=== PATIENT | female | born 1945 | race Caucasian/White ===

== ENCOUNTER 2016-02-24 06:00 | Day surgery (SDC) | payer MEDICARE, OTHER ==
[2016-02-24] MEDS ORDERED: LACTATED RINGERS 1,000 ML ONE (06:29)
[2016-02-24] MEDS ORDERED: PROPOFOL 200 MG/20 ML VIAL IV ONE (07:00)
--- NOTE | 2016-02-24 09:48 | OP ---
DATE OF PROCEDURE: 02/24/16 PREOPERATIVE DIAGNOSIS: 1. Epigastric pain. 2. Hematochezia. POSTOPERATIVE DIAGNOSIS: 1. Antral gastritis. 2. Internal and external hemorrhoids. 3. Diverticulosis. PROCEDURE: 1. Esophagogastroduodenoscopy plus biopsy. 2. Colonoscopy. SURGEON: Noe Escobar MD. COMPLICATIONS: None apparent. BLOOD LOSS: None. MEDICATIONS: Monitored anesthesia care. DESCRIPTION OF PROCEDURE: Informed consent was obtained prior to sedation. The preprocedure cardiopulmonary assessment was satisfactory. The patient was placed in the left lateral decubitus position and was sedated. The tip of the Olympus esophagogastroduodenoscope was inserted in the oropharynx and carefully advanced through the cricopharyngeus into the esophageal lumen. The esophagus was unremarkable without any evidence of esophagitis or Higuera's. The stomach was examined with direct and retroflexed views. The antrum, body, fundus, cardia and incisura were closely examined. The patient has evidence of some erythema of the gastric antrum and biopsies were obtained, looking for antral gastritis. The rest of the stomach was unremarkable without any evidence of ulceration or other pathology. The duodenum was examined down to the third portion and it was unremarkable as well. There was no evidence of any ulceration or other pathology in the duodenum. Biopsies of the antrum were obtained, looking for gastritis. The procedure was then terminated. The patient was turned 180 degrees. A digital rectal exam was performed. Examination of the perianal area and the anal region showed external hemorrhoids , some skin tags and some prolapsing internal tissue. I do not appreciate any fissures. Digital rectal exam revealed no masses seen and I do not appreciate any fissures on digital rectal exam. The tip of the Olympus colonoscope was inserted in the rectum and guided over to the cecum. The cecum was identified by locating the ileocecal valve and appendiceal orifice. Prep was good. The mucosa of the cecum, ascending colon, hepatic flexure, transverse colon, splenic flexure, descending colon and sigmoid colon was closely examined. Direct and retroflexed views of the rectum were obtained. The patient had some sigmoid diverticulosis and on retroflexed view in the rectum, there are some hemorrhoids, but the external portion of her disease seems most significant. The procedure was then terminated. ENDOSCOPIC FINDINGS: 1. Antral gastritis. 2. Diverticulosis. 3. Internal and external hemorrhoids skin tags. RECOMMENDATIONS: She had asked me to see if I could band her hemorrhoids, but it looks like the majority of her issue is external and I think she needs to visit with a general surgeon about that. I do not believe banding would help all her symptoms in this situation. We are going to followup with the biopsies and will be seeing her back in the office. #[id number] cc: Thor Harris MD MTDMisty
[2016-02-24 10:42] VITALS: BP 168/83; TEMP 98.4; O2SAT 98
== END 2016-02-24 10:30 | disposition home or self-care (01) ==
LOC: AMB 06:00
PROVIDERS: ATTEND Internal Medicine Gastroenterology
DX: K92.1 Melena (principal); R10.13 Epigastric pain; K57.30 Diverticulosis of large intestine without perforation or abscess without bleeding; K64.8 Other hemorrhoids; K64.4 Residual hemorrhoidal skin tags; K29.50 Unspecified chronic gastritis without bleeding; I10 Essential (primary) hypertension; E78.00 Pure hypercholesterolemia, unspecified; K59.00 Constipation, unspecified; K21.9 Gastro-esophageal reflux disease without esophagitis; Z79.899 Other long term (current) drug therapy
CPT/HCPCS: 00810; 43239; 45378; 88305; 88342; J3490; J7120

== ENCOUNTER 2016-04-23 08:49 | Emergency (ER) | payer MEDICARE, OTHER ==
[2016-04-23] MEDS ORDERED: ADENOSINE INJ 6 MG/2 ML SYG IV ONE ×6 (09:07→09:42)
[2016-04-23] MEDS ORDERED: SODIUM CHLORIDE 0.9% 10 ML VIAL ONE ×2 (09:09→09:19)
--- NOTE | 2016-04-23 09:34 | ED.PDOC ---
History of Present Illness - General Chief Complaint: Chest Pain/CO Stated Complaint: racing heart with chest pain Time Seen by Provider: 04/23/16 08:52 Source: patient, RN notes reviewed, Vital Signs reviewed, family Exam Limitations: no limitations - History of Present Illness Initial Comments: Patient reports that last night about 9pm she started feeling bad. Her heart started racing, vomited several times, developed chest pain and SOB. She was able to go to sleep but her symptoms were still present upon awaking this morning. She reports she has not been feeling well off and on for the past 2 weeks with dizziness, SOB, syncope, racing heart and chest pain. She has seen both her PCP and Nurse Educator with workup pending. Timing/Duration: 24 hours Severity: moderate Location: substernal Activities at Onset: rest Prior Chest Pain/Cardiac Workup: no prior chest pain Improving Factors: nothing Worsening Factors: nothing Nitro Today/Relief: no nitro taken today Aspirin Treatment Today: no aspirin today Associated Symptoms: chest pain - reports is sharp, tight with pressure, nausea/ vomiting, shortness of breath, syncope Allergies/Adverse Reactions: Allergies NO KNOWN ALLERGY Allergy (Verified 04/23/16 09:37) Home Medications: Ambulatory Orders Atenolol 50 mg PO AM 01/22/13 Folic Acid [(None)] 3 mg PO DAILY 01/22/13 Simvastatin 40 mg PO DAILY 01/22/13 Tizanidine HCl [Zanaflex] 2 mg PO BID PRN 07/16/15 Tofacitinib Citrate [Xeljanz Xr] 11 mg PO BID 02/23/16 Hydrochlorothiazide 12.5 mg PO DAILY 04/23/16 Losartan Potassium 100 mg PO DAILY 04/23/16 Prednisone 5 mg PO DAILY 04/23/16 Review of Systems - Review of Systems Constitutional: States: no symptoms reported. Denies: chills, diaphoresis, fever, malaise, weakness EENTM: States: no symptoms reported Respiratory: States: short of breath. Denies: cough, orthopnea, wheezing Cardiology: States: see HPI, chest pain, palpitations, syncope. Denies: edema Gastrointestinal/Abdominal: States: see HPI, nausea, vomiting. Denies: abdominal pain, constipation, diarrhea Genitourinary: States: no symptoms reported Musculoskeletal: States: no symptoms reported Skin: States: no symptoms reported Neurological: States: tremors, other - Dizziness Endocrine: States: no symptoms reported Hematologic/Lymphatic: States: no symptoms reported Past Medical History (General) - Patient Medical History Hx Congestive Heart Failure: No Hx Diabetes: No - Social History Hx Tobacco Use: No Hx Alcohol Use: No Hx Substance Use: No Hx Substance Use Treatment: No Hx Depression: No - Female History Patient : No Family Medical History - Family History Mother Name: mother Living Status: Cause of : lung cancer Father Name: father Living Status: Cause of : can not remember Sister Family History: No Known Name: sisters x 3 Living Status: Still Living Physical Exam - Physical Exam General Appearance: Agitated, Anxious, Obvious distress, Well Developed, Well Groomed, Well Hydrated, Well Nourished Neck: non-tender, full range of motion, supple, normal inspection Respiratory: lungs clear, normal breath sounds, no respiratory distress, no accessory muscle use, other - ant chest wall is tender to palpation Cardiovascular/Chest: tachycardia - 170 bpm Peripheral Pulses: radial,right: 2+, radial,left: 2+, dorsalis pedis,right: 2+, dorsalis pedis,left: 2+ Gastrointestinal/Abdominal: normal bowel sounds, non tender, soft, no organomegaly, no pulsatile mass Extremity: normal range of motion, non-tender, normal inspection, no pedal edema Neurologic: no motor/sensory deficits, alert, normal mood/affect, oriented x 3 Skin Exam: normal color, warm/dry Lymphatic: no adenopathy Progress - Progress Progress: 04/23/16 10:14 HR is maintaining around 77 and patient reports she is feeling better and is symptom free at this time. 04/23/16 10:[address] Adams. Recommended transfer to [facility]. Patient and family are agreeable with transfer. - Results/Orders Results/Orders: 04/23/16 08:55 IV Care:Saline Lock per Protoc QSHIFT Telemetry Q4H 04/23/16 09:00 EKG STAT 04/23/16 09:45 EKG STAT 04/23/16 10:01 Sodium Chloride 0.9% 1000ML [Ns 1000 ml] 1,000 ml IVS ONCE Laboratory Results - last 24 hr 04/23/16 09:13 WBC 7.7 RBC 3.91 L Hgb 13.3 Hct 39.7 MCV 101.7 H MCH 34.0 H MCHC 33.4 RDW 16.2 H Plt Count 318 MPV 7.3 L Absolute Neuts (auto) 4.30 Absolute Lymphs (auto) 2.20 Absolute Monos (auto) 1.00 H Absolute Eos (auto) 0.10 Absolute Basos (auto) 0.10 Neutrophils % 55.9 Lymphocytes % 29.1 Monocytes % 13.6 H Eosinophils % 0.7 L Basophils % 0.7 D-Dimer, Quantitative < 230 Sodium 137 Potassium 3.8 Chloride 98 L Carbon Dioxide 28 Anion Gap 14.8 BUN 30 H Creatinine 1.46 H BUN/Creatinine Ratio 20.5 H Random Glucose 95 Serum Osmolality 279.8 Calcium 10.2 Total Bilirubin 1.0 AST 39 ALT 36 Alkaline Phosphatase 53 Creatine Kinase 69 CK-MB (CK-2) 4.0 CK-MB (CK-2) % Not Reportable Troponin I 0.06 H B-Natriuretic Peptide 1270.0 H* Serum Total Protein 7.4 Albumin 4.3 Globulin 3.1 Albumin/Globulin Ratio 1.4 - EKG/XRAY/CT EKG: Tachy Comments: SVT, 168 bpm, ST depression V4,V5,V6 XRAY: chest - No acute process per Radiology - Additional EKG/XRAY/Consults EKG #2: Sinus Comments: 81bpm, PVC'sx, ST abnormality has resolved Departure - Departure Clinical Impression: Congestive heart failure, SVT (supraventricular tachycardia) Time of Disposition: 10:23 Disposition: Transfer to Hospital Condition: Fair Referrals: Thor Harris MD [Primary Care Provider] - 1-2 Weeks Home Medications: Ambulatory Orders Atenolol 50 mg PO AM 01/22/13 Folic Acid [(None)] 3 mg PO DAILY 01/22/13 Simvastatin 40 mg PO DAILY 01/22/13 Tizanidine HCl [Zanaflex] 2 mg PO BID PRN 07/16/15 Tofacitinib Citrate [Xeljanz Xr] 11 mg PO BID 02/23/16 Hydrochlorothiazide 12.5 mg PO DAILY 04/23/16 Losartan Potassium 100 mg PO DAILY 04/23/16 Prednisone 5 mg PO DAILY 04/23/16 Critical Care Note - Critical Care Note Total Time (mins): 35 - At bedside for SVT tx with Adenosine Comments: Patient with SVT. Adenosine 6mg IVP given but IV infiltrated. Second IV obtained and second Adenosine 6mg IVP given. Brief initial response but HR rapidly returned to the 160's. Adenosine 12mg IVP given. Good response with HR stabilizing in the upper 80's and BP of 160/94. Decision To Admit - Decistion To Admit Decision to Admit Reason: Admit from ER - Spoke with Dr. Adams. Will admit for SVT, elevated troponin and acute CHF with BNP of 1270 Transfer to Outside Facility - Transfer Information Accepting Provider:: Dr. Corbett Accepting Facility: [facility] Reason for Transfer: specialized care not available - Need more thurough cardiac eval than is available here
[2016-04-23] MEDS ORDERED: SODIUM CHLORIDE 0.9% 1000ML 1,000 ML IVS ONE (10:01)
--- NOTE | 2016-04-23 10:09 | RAD ---
PROCEDURE: XR CHEST 1 VIEW HISTORY: chest pain COMPARISON: 07/16/2015 TECHNIQUE: Single projection of the chest was done. FINDINGS: Note is again made of multiple old healed right-sided rib fractures . There are no discrete airspace infiltrates, pneumothoraces or pleural effusions. The pulmonary vascularity is normal. The cardiomediastinal contour is stable . IMPRESSION: There is no acute pleural-parenchymal process seen in the imaged lung pyle. Location of Interpretation: Teleradiology Electronically signed by: Farhad Nava MD 04/23/2016 10:08 AM CDT
[2016-04-23] MEDS ORDERED: METOPROLOL TARTRATE 50 MG TAB PO ONE (10:34)
[2016-04-23 11:23] VITALS: BP 164/104; TEMP 97.2; O2SAT 98
== END 2016-04-23 11:42 | disposition short-term general hospital (02) ==
LOC: ER 08:49
DX: I47.1 Supraventricular tachycardia (principal); I50.9 Heart failure, unspecified; Z79.899 Other long term (current) drug therapy
CPT/HCPCS: 36415; 71010; 80053; 82550; 82553; 83880; 84484; 85025; 85379; 93005; J0153; J7030

== ENCOUNTER → 2016-05-30 | Outpatient (CLI) | payer MEDICARE, OTHER | END | disposition home or self-care (01) | LOC: GMAB 14:43 | PROVIDERS: ATTEND Family Medicine | DX: N30.00 Acute cystitis without hematuria (principal) ==

== ENCOUNTER → 2016-06-02 | Outpatient (CLI) | payer MEDICARE, OTHER ==
--- NOTE | 2016-06-02 16:46 | CT ---
EXAM DESCRIPTION: Abdomen/Pelvis w/wo Contrast CLINICAL HISTORY: NAUSEA AND VOMITING COMPARISON: 16 May 2013 TECHNIQUE: Transaxial images were obtained pre and post menstruation of intravenous contrast medium without oral contrast media. Sagittal and coronal reconstruction was performed. This exam was performed according to our departmental dose-optimization program, which includes automated exposure control, adjustment of the mA and/or kV according to patient size and/or use of iterative reconstruction technique. FINDINGS: The lung bases are clear. The liver and spleen are unremarkable. Mild dilatation of the common bile duct is observed. The patient is postcholecystectomy. The pancreas appears somewhat atrophic. No adrenal masses are detected. Imaging of the kidneys reveals no evidence of hydronephrosis mass cyst or calcification. The right kidney appears somewhat atrophic. Examination also reveals what appears to be a diverticulum of the duodenum with some debris within it. A cluster of embolization coils are observed in the upper abdomen. Adjacent to the region of coiling is a cystic-appearing mass measuring 9.62 x 8.5 cm. This is adjacent to the duodenum. It has the appearance of the hematoma. Calcific atherosclerotic changes observed in the abdominal aorta without evidence of aneurysmal dilatation. Diverticulosis of the colon is observed without evidence of diverticulitis. No free fluid is observed. The patient is post hysterectomy. IMPRESSION: 1. The patient is postcholecystectomy. There is mild dilatation of the biliary ductal system which is a common finding post cholecystectomy. 2. A large cystic-appearing region is observed adjacent to the duodenal C-loop in area which also has embolization coils next to it. This appears to be a focus of hemorrhage associated with the the duodenal C-loop. It is a contained hemorrhage. 3. Uncomplicated diverticulosis of the colon. 4. Hysterectomy 5. Results were called to Dr. Harris. Electronically signed by: Gian Davis MD 06/02/2016 4:46 PM CDT
== END ==
LOC: CT 14:01
PROVIDERS: ATTEND Family Medicine
DX: R11.2 Nausea with vomiting, unspecified (principal); Z98.890 Other specified postprocedural states; K57.30 Diverticulosis of large intestine without perforation or abscess without bleeding; Z90.710 Acquired absence of both cervix and uterus

== ENCOUNTER 2016-07-04 16:32 | Emergency (ER) | payer MEDICARE, OTHER ==
--- NOTE | 2016-07-04 17:01 | ED.PDOC ---
History of Present Illness - General Chief Complaint: Skin/Abrasion/Tear Stated Complaint: elbow skin tear, bleeding Time Seen by Provider: 07/04/16 16:50 Source: patient Exam Limitations: no limitations - History of Present Illness Initial Comments: Keri Begum 71 y/o female stated while walking out of her friends house tripped on her slippers and fell on her left elbow and knee;she denies head or neck injury or pain on her head or neck and came to er to be checked since she is taking plavix for her cardiac stent that was placed recently.Has history of a fib and,htn and cad Occurred: just prior to arrival Pain - Upper Extremity: moderate: Elbow, left Method of Injury: fell Improving Factors: nothing Worsening Factors: nothing Associated Symptoms: none Allergies/Adverse Reactions: Allergies NO KNOWN ALLERGY Allergy (Verified 07/04/16 17:05) Home Medications: Ambulatory Orders Atenolol 50 mg PO AM 01/22/13 Folic Acid [(None)] 3 mg PO DAILY 01/22/13 Simvastatin 40 mg PO DAILY 01/22/13 Tizanidine HCl [Zanaflex] 2 mg PO BID PRN 07/16/15 Tofacitinib Citrate [Xeljanz Xr] 11 mg PO BID 02/23/16 Hydrochlorothiazide 12.5 mg PO DAILY 04/23/16 Losartan Potassium 100 mg PO DAILY 04/23/16 Prednisone 5 mg PO DAILY 04/23/16 Review of Systems - Review of Systems Constitutional: States: no symptoms reported EENTM: States: no symptoms reported Respiratory: States: no symptoms reported Cardiology: States: no symptoms reported Gastrointestinal/Abdominal: States: no symptoms reported Genitourinary: States: no symptoms reported Musculoskeletal: States: see HPI Skin: States: no symptoms reported Neurological: States: no symptoms reported Endocrine: States: no symptoms reported Hematologic/Lymphatic: States: no symptoms reported Past Medical History (General) - Patient Medical History Hx Cardiac Disorders: No Hx Congestive Heart Failure: No Hx Hypertension: Yes Hx Diabetes: No Hx Other PMH: Yes - cad,afib Surgical History: cholecystectomy, other - hysterectomy,carpal tunnel Other Surgeries:: cardiac cath,coiling of pancreatic artery aneurysm - Vaccination History Hx Tetanus, Diphtheria Vaccination: Yes Hx Influenza Vaccination: Yes Hx Pneumococcal Vaccination: No - Social History Hx Tobacco Use: No Hx Alcohol Use: No Hx Substance Use: No Hx Substance Use Treatment: No Hx Depression: No - Activities of Daily Living Patient Lives Alone: No - family Grooming Ability: Independent Eating (Feeding) Ability: Independent Toileting Ability: Independent - Female History Patient : No Family Medical History - Family History Mother Name: mother Living Status: Cause of : lung cancer Hx Family Hypertension: Yes - parents Father Name: father Living Status: Cause of : can not remember Sister Family History: No Known Name: sisters x 3 Living Status: Still Living Physical Exam - Physical Exam General Appearance: Alert, No apparent distress, Other - NCAT Eyes, Ears, Nose, Throat Exam: PERRL/EOMI, normal ENT inspection, TMs normal Neck: non-tender, full range of motion, supple, normal inspection Cardiovascular/Respiratory: no M/R/G, normal peripheral pulses, normal breath sounds, irregularly irregular Abdominal Exam: non-tender, no organomegaly Back Exam: normal inspection, no CVA tenderness, no vertebral tenderness Shoulder Exam: normal inspection, no evidence of injury Elbow/Forearm Exam: pain - left elbow,skin abrasion,no active bleeding noted, soft tissue tenderness Wrist Exam: normal inspection, no evidence of injury Hand Exam: normal inspection, no evidence of injury Neuro/Tendon: normal sensation, normal motor functions, normal tendon functions , responds to pain, no evidence tendon injury Mental Status: alert, oriented x 3 Skin Exam: normal color, warm/dry Progress - Results/Orders Results/Orders: Vital Signs - 8 hr 07/04/16 07/04/16 16:37 17:40 Temperature 98.0 F Pulse Rate [ 64 64 pulse ox] Respiratory 20 20 Rate Blood Pressure 183/97 148/76 [Right Arm] O2 Sat by Pulse 95 96 Oximetry - EKG/XRAY/CT XRAY: elbow - no fracture /radiologist Departure - Departure Clinical Impression: Skin abrasion Fall Qualifiers: Encounter type: initial encounter Qualified Code(s): W19.XXXA - Unspecified fall, initial encounter Left elbow contusion Qualifiers: Encounter type: initial encounter Qualified Code(s): S50.02XA - Contusion of left elbow, initial encounter Time of Disposition: 17:51 Disposition: Discharge to Home or Self Care Condition: Good Departure Forms: ED Discharge - Pt. Copy, Patient Portal Self Enrollment Instructions: DI for Contusion Referrals: Thor Harris MD [Primary Care Provider] - 1-2 Weeks Home Medications: Ambulatory Orders Atenolol 50 mg PO AM 01/22/13 Folic Acid [(None)] 3 mg PO DAILY 01/22/13 Simvastatin 40 mg PO DAILY 01/22/13 Tizanidine HCl [Zanaflex] 2 mg PO BID PRN 07/16/15 Tofacitinib Citrate [Xeljanz Xr] 11 mg PO BID 02/23/16 Hydrochlorothiazide 12.5 mg PO DAILY 04/23/16 Losartan Potassium 100 mg PO DAILY 04/23/16 Prednisone 5 mg PO DAILY 04/23/16 Additional Instructions: Tylenol (otc) 500 mg by mouth 3 x a day for pain as needed ;Ice pack to affected area 3 x a day during waking hours only for pain /swelling as needed
[2016-07-04 17:05] VITALS: TEMP 98
--- NOTE | 2016-07-04 17:31 | RAD ---
EXAM DESCRIPTION: Elbow,Left 3 Views CLINICAL HISTORY: 71 years Female fall COMPARISON: None. TECHNIQUE: Three view FINDINGS: No elbow effusion. There is narrowing of the joint spaces with osteophytosis along the proximal radius and ulna. IMPRESSION: No acute fracture is identified. Degenerative changes Electronically signed by: Katelin Ni 07/04/2016 5:31 PM CDT
[2016-07-04 17:42] VITALS: BP 148/76; O2SAT 96
== END 2016-07-04 18:08 | disposition home or self-care (01) ==
LOC: ER 16:32
DX: S50.312A Abrasion of left elbow, initial encounter (principal); S50.02XA Contusion of left elbow, initial encounter; I10 Essential (primary) hypertension; I48.91 Unspecified atrial fibrillation; I25.10 Atherosclerotic heart disease of native coronary artery without angina pectoris; Z79.02 Long term (current) use of antithrombotics/antiplatelets; Z98.61 Coronary angioplasty status; Z79.899 Other long term (current) drug therapy; W01.0XXA Fall on same level from slipping, tripping and stumbling without subsequent striking against object, initial encounter; Y92.009 Unspecified place in unspecified non-institutional (private) residence as the place of occurrence of the external cause

== ENCOUNTER → 2016-07-12 | Outpatient (CLI) | payer MEDICARE, OTHER | LOC: GMAB 06-02 14:35 | PROVIDERS: ATTEND Family Medicine | DX: R19.7 Diarrhea, unspecified (principal) ==

== ENCOUNTER → 2016-07-13 | Outpatient (CLI) | payer MEDICARE, OTHER | END | disposition home or self-care (01) | LOC: GMAB 14:24 | PROVIDERS: ATTEND Family Medicine | DX: R53.82 Chronic fatigue, unspecified (principal) ==

== ENCOUNTER 2016-11-07 16:42 | Emergency (ER) | payer MEDICARE, OTHER ==
[2016-11-07] MEDS ORDERED: ACETAMINOPHEN 500 MG TAB PO ONE (17:02)
[2016-11-07] MEDS ORDERED: ONDANSETRON ODT 8 MG TAB ONE (17:08)
[2016-11-07] MEDS ORDERED: ONDANSETRON ODT 8 MG TAB SL ONE (17:12)
--- NOTE | 2016-11-07 17:52 | RAD ---
EXAM: Chest,1 View CLINICAL INDICATION: 71-year-old female with cough and fever. TECHNIQUE: Single view, AP portable chest was obtained. COMPARISON: 04/23/2016. FINDINGS: Permanent stable cardiac and mediastinal silhouette. Heart size is normal. Tortuous atherosclerotic thoracic aorta. RIGHT middle lobe airspace opacification greater than LEFT suggesting consolidation and/or atelectasis. No large pleural effusions or gross pneumothoraces. Irregularity of the RIGHT side chest RIBS compatible with sequela of prior healed fractures. The visualized bones reveal degenerative change. Upper abdominal surgical coils noted. IMPRESSION: Airspace opacification of the RIGHT greater than LEFT lower lobes raising the concern for consolidation/pneumonia. Please correlate with patient clinical findings and follow-up for resolution. Electronically signed by: Frances Hooker MD 11/07/2016 5:51 PM CDT Workstation: [id number]
[2016-11-07] MEDS ORDERED: AZITHROMYCIN IV 500 MG in SODIUM CHLORIDE 0.9% 250ML 250 ML IVPB ONE (17:58)
[2016-11-07] MEDS ORDERED: cefTRIAXone SODIUM 1 GM in SODIUM CHL 0.9% 50ML MIN-BAG+ 50 ML IVPB ONE (17:58)
[2016-11-07] MEDS ORDERED: FLUCONAZOLE 100 MG TAB PO ONE (18:00)
[2016-11-07] MEDS ORDERED: SODIUM CHLORIDE 0.9% 1000ML 1,000 ML IVS ONE (18:14)
[2016-11-07] MEDS ORDERED: MAGNESIUM SULFATE PREMIX 2GM 2 GM in PREMIX BAG 1 BAG IVPB ONE (18:29)
[2016-11-07] MEDS ORDERED: cefTRIAXone SODIUM 1 GM VIAL ONE (18:32)
[2016-11-07] MEDS ORDERED: SODIUM CHL 0.9% 50ML MIN-BAG+ 50 ML IVPB ONE (18:33)
[2016-11-07 19:08] VITALS: O2SAT 95
--- NOTE | 2016-11-07 19:10 | ED.PDOC ---
History of Present Illness - General Chief Complaint: General Stated Complaint: shivering/shaking Time Seen by Provider: 11/07/16 16:52 Source: patient Exam Limitations: clinical condition - History of Present Illness Initial Comments: The patient is a 71-year-old female presenting to the emergency room secondary to generalized weakness, increased tremor, fever, and increased cough. The patient also had some mild delirium. She is showing some confusion and seeing some mild visual hallucinations like feathers floating in the air. The delirium has only been going on an hour so. She is febrile here. She is alert and cooperative. She is able to give her medications and her medical history. She reports about a day and a half of cough. Her oxygen levels are borderline at 88-92% on room air. She does have some right lower lung field rales. She does have a cough. She did cough until she vomited a while ago. she does take several immunosuppressive medications. Her last white blood cell count checked here approximately 6 months ago was 7000. Her last creatinine checked here around that same time was 1.2. additionally, the patient did take her first dose of Sinemet today. She would've come in sooner but she felt that this was likely a reaction to that medication. Timing/Duration: 24 hours Severity: moderate Improving Factors: nothing Worsening Factors: nothing Associated Symptoms: cough, fever/chills, malaise, weakness Allergies/Adverse Reactions: Allergies NO KNOWN ALLERGY Allergy (Verified 07/04/16 17:05) Home Medications: Ambulatory Orders Atenolol 50 mg PO AM 01/22/13 Folic Acid [(None)] 3 mg PO DAILY 01/22/13 Simvastatin 40 mg PO DAILY 01/22/13 Tizanidine HCl [Zanaflex] 2 mg PO BID PRN 07/16/15 Tofacitinib Citrate [Xeljanz Xr] 11 mg PO BID 02/23/16 Hydrochlorothiazide 12.5 mg PO DAILY 04/23/16 Losartan Potassium 100 mg PO DAILY 04/23/16 Prednisone 5 mg PO DAILY 04/23/16 Review of Systems - Review of Systems Constitutional: States: chills, diaphoresis, fever, malaise, weakness EENTM: States: no symptoms reported Respiratory: States: cough, short of breath - mild Cardiology: States: no symptoms reported Gastrointestinal/Abdominal: States: vomiting - after coughing Genitourinary: States: no symptoms reported Musculoskeletal: States: no symptoms reported - no new symptoms Skin: States: no symptoms reported Neurological: States: other - increased tremor over the last day. Endocrine: States: excessive sweating, increased thirst All other Systems: No Change from Baseline Past Medical History (General) - Patient Medical History Hx Cardiac Disorders: Yes - Cardiac x 1, afib Hx Congestive Heart Failure: No Hx Hypertension: Yes Hx Diabetes: No Hx Gastroesophageal Reflux: Yes - Vaccination History Hx Tetanus, Diphtheria Vaccination: Yes Hx Influenza Vaccination: Yes Hx Pneumococcal Vaccination: No - Social History Hx Tobacco Use: No Hx Alcohol Use: No Hx Substance Use: No Hx Substance Use Treatment: No Hx Depression: No - Female History Patient : No - Triage Comment ED Triage Comment: Pt states she starte a new medication today and thinks that is what causing her trimmers. States she did vomit at the [employer]. Family Medical History - Family History Mother Name: mother Living Status: Cause of : lung cancer Hx Family Hypertension: Yes - parents Father Name: father Living Status: Cause of : can not remember Sister Family History: No Known Name: sisters x 3 Living Status: Still Living Physical Exam - Physical Exam General Appearance: Alert, Anxious, Other - flushed and mildly diaphoretic. She is easily confused but does answermost questions appropriately. Eye Exam: bilateral normal Ears, Nose, Throat: hearing grossly normal, normal ENT inspection, normal pharynx Neck: full range of motion, supple, normal inspection Respiratory: no respiratory distress, no accessory muscle use, rales - right lower lobe Cardiovascular/Chest: normal peripheral pulses, no edema, tachycardia - appears to be sinus Peripheral Pulses: radial,right: 2+, radial,left: 2+, dorsalis pedis,right: 2+, dorsalis pedis,left: 2+ Gastrointestinal/Abdominal: non tender, soft Rectal Exam: deferred Back Exam: normal inspection, no CVA tenderness, no vertebral tenderness Extremity: normal range of motion, non-tender, normal inspection, no pedal edema , normal capillary refill, other - hronic changes from her rheumatoid arthritis Neurologic: hedis abstractor II-XII nml as tested, alert, oriented x 3, other - mental status has cleared significantly with improvement in the fever. No headache. No focal neurological changes. Skin Exam: other - flushed Comments: Vital Signs - 24 hr 11/07/16 11/07/16 11/07/16 16:57 17:03 17:18 Temperature 101.9 F H Pulse Rate [ 104 H 97 H monitor] Respiratory 24 24 24 Rate Blood Pressure 139/73 91/52 [Left Arm] O2 Sat by Pulse 97 96 Oximetry 11/07/16 11/07/16 18:00 18:50 Temperature 101.9 F H Pulse Rate [ 95 H 81 monitor] Respiratory 18 24 Rate Blood Pressure 126/61 99/51 [Left Arm] O2 Sat by Pulse 84 L 95 Oximetry Progress - Progress Progress: 11/07/16 19:14 the patient is a 71-year-old female presenting with what appears to be sepsis likely from her right lower lobe pneumonia in an immunocompromised date. The patient is receiving Rocephin and azithromycin. She is receiving a liter of IV fluids. even though she is in an immunocompromised state I am going to go ahead and dose her with a dose of Solu-Medrol, as adrenal insufficiency given her history may rapidly develop. Final results on urinalysis and influenza swab are pending. She does have some hypomagnesemia and has received a dose of magnesium. Delirium has significantly improved with above measures. She looks much more comfortable. She does still require low-flow oxygen to keep her oxygen saturations greater than 92%. She does have some acute renal failure. The IV fluids should help with that as well. She does have some macrocytosis and takes methotrexate so a folic acid level and b12 level may also be warranted along with the peripheral blood smear. These are send out labs here so have not been done. her fever is starting to spike again so she will be dosed with a dose of ibuprofen. transferred for higher level of care. Critical care time spent in management of this patient as well as coordination of care and receiving facility 40 minutes - Results/Orders Results/Orders: Laboratory Tests 11/07/16 11/07/16 11/07/16 17:36 17:36 18:22 WBC 1.6 L* RBC 3.76 L Hgb 12.7 Hct 38.4 MCV 101.9 H MCH 33.7 H MCHC 33.0 RDW 16.6 H Plt Count 325 MPV 6.9 L Absolute Neuts (auto) Not Reportable Absolute Lymphs (auto) Not Reportable Absolute Monos (auto) Not Reportable Absolute Eos (auto) Not Reportable Neutrophils % Not Reportable Neutrophils % (Manual) 70.0 Lymphocytes % Not Reportable Lymphocytes % (Manual) 18.0 Monocytes % Not Reportable Monocytes % (Manual) 2.0 Eosinophils % Not Reportable Basophils % Not Reportable Band Neutrophils 10.0 Platelet Estimate Normal Normal RBC Morphology Normal rbc morph Sodium 135 Potassium 4.3 Chloride 98 L Carbon Dioxide 24 Anion Gap 17.3 BUN 43 H Creatinine 1.94 H BUN/Creatinine Ratio 22.2 H Random Glucose 96 Serum Osmolality 280.8 Lactic Acid 3.7 H* Calcium 9.7 Magnesium 1.3 L Total Bilirubin 0.7 AST 61 H ALT 34 Alkaline Phosphatase 52 Creatine Kinase 74 CK-MB (CK-2) 1.7 CK-MB (CK-2) % Not Reportable Troponin I < 0.02 Serum Total Protein 7.3 Albumin 4.4 Globulin 2.9 Albumin/Globulin Ratio 1.5 Amylase 61 Lipase 24 chest x-ray shows a right lower lobe infiltrate. Urinalysis is pending. Flu swab is pending. Departure - Departure Clinical Impression: Immunocompromised, acquired Sepsis Qualifiers: Sepsis type: sepsis due to unspecified organism Qualified Code(s): A41.9 - Sepsis, unspecified organism Pneumonia Qualifiers: Pneumonia type: due to unspecified organism Laterality: right Lung location: lower lobe of lung Qualified Code(s): J18.1 - Lobar pneumonia, unspecified organism Disposition: Transfer to Hospital Referrals: Thor Harris MD [Primary Care Provider] - 1-2 Weeks Home Medications: Ambulatory Orders Atenolol 50 mg PO AM 01/22/13 Folic Acid [(None)] 3 mg PO DAILY 01/22/13 Simvastatin 40 mg PO DAILY 01/22/13 Tizanidine HCl [Zanaflex] 2 mg PO BID PRN 07/16/15 Tofacitinib Citrate [Xeljanz Xr] 11 mg PO BID 02/23/16 Hydrochlorothiazide 12.5 mg PO DAILY 04/23/16 Losartan Potassium 100 mg PO DAILY 04/23/16 Prednisone 5 mg PO DAILY 04/23/16 Transfer to Outside Facility - Transfer Information Accepting Provider:: dr olmstead Accepting Facility: [facility] Reason for Transfer: ICU
[2016-11-07] MEDS ORDERED: MAGNESIUM SULFATE PREMIX 2GM 50 ML IVPB ONE (19:11)
[2016-11-07] MEDS ORDERED: IBUPROFEN 200 MG TAB PO ONE (19:13)
[2016-11-07] MEDS ORDERED: FOLIC ACID 1 MG TAB ONE (19:17)
[2016-11-07] MEDS ORDERED: methylPREDNISolone SODIUM SUC 125 MG/2 ML VIAL IV ONE (19:20)
[2016-11-07] MEDS ORDERED: AZITHROMYCIN IV 500 MG VIAL IVPB ONE (19:27)
[2016-11-07] MEDS ORDERED: SODIUM CHLORIDE 0.9% 250ML 250 ML ONE (19:27)
[2016-11-07 20:28] VITALS: BP 81/43; TEMP 99
[2016-11-08] MEDS ORDERED: FOLIC ACID 1 MG TAB PO ONE ×3 (18:07→19:26)
== END 2016-11-07 20:20 | disposition short-term general hospital (02) ==
LOC: ER 16:42
DX: A41.9 Sepsis, unspecified organism (principal); J18.1 Lobar pneumonia, unspecified organism; D89.9 Disorder involving the immune mechanism, unspecified; I48.91 Unspecified atrial fibrillation; I10 Essential (primary) hypertension; K21.9 Gastro-esophageal reflux disease without esophagitis; Z79.899 Other long term (current) drug therapy
CPT/HCPCS: 36415; 71010; 80053; 82150; 82550; 82553; 83605; 83690; 83735; 84484; 85025; 87040; 87502; J0456; J0696; J2930; J3475; J7030; J7050

== ENCOUNTER → 2017-02-02 | Outpatient (CLI) | payer MEDICARE, OTHER | END | disposition home or self-care (01) | LOC: GMAB 10:51 | PROVIDERS: ATTEND Family Medicine | DX: E53.8 Deficiency of other specified B group vitamins (principal); I10 Essential (primary) hypertension; D50.8 Other iron deficiency anemias ==

== ENCOUNTER → 2017-02-09 | Outpatient (CLI) | payer MEDICARE, OTHER ==
--- NOTE | 2017-02-09 16:33 | MRI ---
EXAM DESCRIPTION: Brain w/oContrast: MRI. CLINICAL HISTORY: ALTERED MENTAL STATUS COMPARISON: MRI scan of the brain 08/24/2009. TECHNIQUE: Multiplanar, high-field MRI unit, multiple diffusion sequences, multiple conventional sequences without contrast. FINDINGS: Multiple foci of bright FLAIR and T2-weighted signal in the periventricular white matter and rolon-white matter junctions of the cerebral hemispheres. Relatively symmetric bilaterally with slightly more in the left frontal lobe compared to other regions. Normal signal in the bilateral basal ganglia. No hemorrhage, no cerebral edema, no mass-effect. Normal signal in the brainstem and cerebellar hemispheres. No hemorrhage, no cerebral edema, no mass-effect. Concordance of the diffusion and non-diffusion sequences with no diffusion restriction. Cortical sulci, ventricles, and other CSF spaces, and the subdural spaces are normally configured for patients age. No effacement or displacement. No midline shift. No extra-axial hemorrhage. Normal flow signal void in the major vessels of the [place], and the venous sinuses. IACs are symmetric bilaterally. Multiple basilar cells containing fluid or edema in the inferior right mastoid air cells. Normal signal in the left mastoid air cells. No mass effect in the bilateral cerebellopontine angles. Pituitary gland occupies most of the sella. Base of the cerebellar tonsils is above the foramen magnum. Minimal chronic disease in the paranasal sinuses. [place] bull[place] in the right middle turbinate The bony calvarium is intact. IMPRESSION: 1. Multiple foci of white matter lesions in the bilateral cerebral hemispheres are most likely related to cerebral microvascular disease. Number of lesions has progressed since the prior study in 2009. No hemorrhage, mass effect, or cerebral edema. 2. MRI diffusion study showing no evidence of acute or subacute infarction or significant ischemia. Stable since the prior study. 3. [place] bull[place] in the right middle turbinate stable since the prior study. Inflammatory changes in the right mastoid air cells of the base stable since the prior study. Electronically signed by: Danilo Randle MD 02/09/2017 4:32 PM [facility]
== END | disposition home or self-care (01) ==
LOC: MRI 13:43
PROVIDERS: ATTEND Family Medicine
DX: I67.89 Other cerebrovascular disease (principal); R41.82 Altered mental status, unspecified

== ENCOUNTER → 2017-08-23 | Outpatient (CLI) | payer MEDICARE, OTHER | LOC: LAB.O 09:35 | PROVIDERS: ATTEND Internal Medicine Rheumatology | DX: Z79.899 Other long term (current) drug therapy (principal) ==

== ENCOUNTER → 2017-10-24 | Outpatient (CLI) | payer MEDICARE, OTHER | LOC: LAB.O 09:38 | PROVIDERS: ATTEND Internal Medicine Rheumatology | DX: Z79.899 Other long term (current) drug therapy (principal) ==

== ENCOUNTER 2017-11-13 05:25 | Day surgery (SDC) | payer MEDICARE, OTHER ==
[2017-11-13] MEDS ORDERED: PROPARACAINE 0.5% OPHTH SOL 15 ML BTTL ONE (06:01)
[2017-11-13] MEDS ORDERED: TROP 1%/CYCLOPEN 1%/PHENYL 2% DROPS ONE (06:01)
[2017-11-13] MEDS ORDERED: MIDAZOLAM INJ 2 MG/2 ML VIAL ONE (06:37)
[2017-11-13] MEDS: PROPARACAINE 0.5% OPHTH SOL 15 ML BTTL RIGHT_EYE ONE (08:10)
[2017-11-13] MEDS: TOBRAMYCIN SULF 0.3 % OPHT SOL 1 DROP RIGHT_EYE ONE ×2 (08:17→08:45)
[2017-11-13] MEDS: LIDOCAINE 1% 2 ML VIAL INJ ONE ×2 (08:17→08:30)
[2017-11-13] MEDS: DEXAMETHASONE 0.1% OPHTH SOL 1 DROP RIGHT_EYE ONE ×2 (08:17→08:45)
[2017-11-13] MEDS: BRIMONIDINE 0.2% OPHTH DROPS RIGHT_EYE ONE ×2 (08:18→08:45)
== END 2017-11-13 09:20 | disposition home or self-care (01) ==
LOC: AMB 05:25
PROVIDERS: ATTEND Ophthalmology
DX: H25.11 Age-related nuclear cataract, right eye (principal); I10 Essential (primary) hypertension; M06.9 Rheumatoid arthritis, unspecified; K21.9 Gastro-esophageal reflux disease without esophagitis; N28.9 Disorder of kidney and ureter, unspecified; Z79.82 Long term (current) use of aspirin; Z79.899 Other long term (current) drug therapy
CPT/HCPCS: 00142; 66984; J2250

== ENCOUNTER 2017-11-27 05:31 | Day surgery (SDC) | payer MEDICARE, OTHER ==
[2017-11-27] MEDS ORDERED: PROPARACAINE 0.5% OPHTH SOL 15 ML BTTL ONE (06:00)
[2017-11-27] MEDS ORDERED: TROP 1%/CYCLOPEN 1%/PHENYL 2% DROPS ONE (06:00)
[2017-11-27] MEDS ORDERED: MIDAZOLAM INJ 2 MG/2 ML VIAL ONE (07:05)
[2017-11-27] MEDS ORDERED: LIDOCAINE 1% MPF 5 ML VIAL INJ ONE (08:45)
[2017-11-27] MEDS ORDERED: DEXAMETHASONE 0.1% OPHTH SOL 1 DROP LEFT_EYE ONE ×2 (08:46→08:59)
[2017-11-27] MEDS ORDERED: BRIMONIDINE 0.2% OPHTH DROPS LEFT_EYE ONE ×2 (08:46→08:59)
[2017-11-27] MEDS ORDERED: TOBRAMYCIN SULF 0.3 % OPHT SOL 1 DROP LEFT_EYE ONE ×2 (08:46→08:59)
== END 2017-11-28 09:35 | disposition home or self-care (01) ==
LOC: AMB 05:31
PROVIDERS: ATTEND Ophthalmology
DX: H25.12 Age-related nuclear cataract, left eye (principal); I10 Essential (primary) hypertension; I25.10 Atherosclerotic heart disease of native coronary artery without angina pectoris; I25.2 Old myocardial infarction; R73.03 Prediabetes; F17.290 Nicotine dependence, other tobacco product, uncomplicated; Z79.82 Long term (current) use of aspirin; Z79.899 Other long term (current) drug therapy
CPT/HCPCS: 00142; 66984; J2250

== ENCOUNTER → 2017-12-25 | Outpatient (CLI) | payer MEDICARE, OTHER | LOC: LAB.O 10:28 | PROVIDERS: ATTEND Internal Medicine Rheumatology | DX: Z79.899 Other long term (current) drug therapy (principal) ==

== ENCOUNTER → 2018-01-01 | Outpatient (CLI) | payer MEDICARE, OTHER ==
--- NOTE | 2018-01-01 10:31 | RAD ---
4 view left shoulder Indication: PAIN IN LEFT SHOULDER Comparison: None. Impression: A.C. and glenohumeral joint alignment normal without acute fracture or dislocation. Moderate glenohumeral joint osteoarthritis noted with subchondral sclerosis, joint space narrowing, and mild cortical remodeling of the central to inferior aspects of the glenohumeral joint. Small inferior osteophytes noted as well. Electronically signed by: Bora Javier MD 01/01/2018 10:29 AM [facility]
== END ==
LOC: RAD 09:17
PROVIDERS: ATTEND Orthopaedic Surgery
DX: M19.012 Primary osteoarthritis, left shoulder (principal); M25.512 Pain in left shoulder

== ENCOUNTER → 2018-01-03 | Outpatient (CLI) | payer MEDICARE, OTHER ==
--- NOTE | 2018-01-03 11:10 | MRI ---
MRI left shoulder without contrast INDICATION: Rotator cuff tear shoulder pain arthritis TECHNIQUE: Noncontrast MR imaging left shoulder standard protocol FINDINGS: Mild hypertrophic AC joint osteoarthrosis. Fairly severe glenohumeral arthrosis with prominent joint fluid inferior osteophytes joint space narrowing and diffuse chondrosis. Fairly large glenohumeral effusion with synovitis. Interstitial vague partial tears distal supraspinatus and infraspinatus partially 50% partial-thickness with cystic change in the posterior lateral humerus. Grade 1 marbling throughout the rotator cuff muscle bellies. No bicep rupture or dislocation. Subscapularis is intact. Mild retroversion of the glenoid. Slight posterior decentering of the humerus related to the osteoarthrosis. IMPRESSION: Fairly severe glenohumeral osteoarthrosis with mild retroversion of the glenoid and slight posterior decentering of the humerus Mild hypertrophic AC joint arthrosis Interstitial tendinosis and partial tears distal supraspinatus and infraspinatus approaching 50% partial-thickness without rupture or retraction Large volume joint fluid Electronically signed by: Jesse Fuentes MD 01/03/2018 11:09 AM [facility]
== END ==
LOC: MRI 09:00
PROVIDERS: ATTEND Orthopaedic Surgery
DX: M75.102 Unspecified rotator cuff tear or rupture of left shoulder, not specified as traumatic (principal); M19.012 Primary osteoarthritis, left shoulder

== ENCOUNTER 2018-02-14 16:21 | Observation (INO) | payer MEDICARE, OTHER ==
--- NOTE | 2018-02-14 17:10 | ED.PDOC ---
History of Present Illness - General Chief Complaint: Chest Pain/KS Stated Complaint: Chest pain Time Seen by Provider: 02/14/18 16:38 Source: patient Exam Limitations: no limitations - History of Present Illness Initial Comments: C/O C/P WITH ASSOCIATED DIZZINESS. STATES HAS BEEN GOING ON FOR PAST 2 MONTHS INTERMITTENTLY. CONCERNED B/C SHE HAD ASSOCIATED CP WITH IT. Severity/Quality: mild Location: substernal Chest Pain Radiation: no radiation Activities at Onset: other - WITH STANDING Prior Chest Pain/Cardiac Workup: no prior chest pain Improving Factors: nothing Worsening Factors: other - GOING FROM SITTING TO STANDING Associated Symptoms: dizziness Allergies/Adverse Reactions: Allergies NO KNOWN ALLERGY Allergy (Verified 07/04/16 17:05) Home Medications: Ambulatory Orders Folic Acid [(None)] 3 mg PO DAILY 01/22/13 Tofacitinib Citrate [Xeljanz Xr] 5 mg PO BID 02/23/16 Hydrochlorothiazide 12.5 mg PO DAILY 04/23/16 Losartan Potassium 100 mg PO DAILY 04/23/16 ALPRAZolam [Xanax] 0.5 mg PO PRN PRN 11/13/17 Alendronate Sodium [Fosamax] 70 mg PO ONCE 11/13/17 Aspirin [Aspirin Adult Low Dose] 81 mg PO DAILY 11/13/17 Clonidine HCl (Adhd) [Clonidine Hydrocloride] 0.1 mg PO PRN PRN 11/13/17 Coenzyme Q10 (Ubidecarenone) [Coq10 Gummies Adult] 100 mg PO DAILY 11/13/17 Methotrexate [Xatmep] 2.5 mg PO ONCE 11/13/17 Multiple Vitamins W/ Minerals [Multi For Her] 1 tab PO DAILY 11/13/17 Pravastatin Sodium 40 mg PO DAILY 11/13/17 Probiotic Product [Probiotic] 1 tab PO DAILY 11/13/17 Propranolol HCl 20 mg PO BID 11/13/17 Tramadol HCl [Ultram] 50 mg PO PRN PRN 11/13/17 Review of Systems - Review of Systems Constitutional: Denies: chills, fever EENTM: States: no symptoms reported Respiratory: Denies: cough, short of breath Cardiology: States: chest pain. Denies: edema, palpitations, syncope Gastrointestinal/Abdominal: Denies: abdominal pain, nausea, vomiting Genitourinary: States: no symptoms reported Musculoskeletal: States: no symptoms reported Skin: States: other - NO DIAPHORESIS Neurological: States: other - DIFFICULT FOR PT TO DESCRIBE DIZZINESS VERTIGO VS LIGHTHEADEDNESS. Denies: numbness, weakness Endocrine: States: no symptoms reported Hematologic/Lymphatic: States: no symptoms reported Past Medical History (General) - Patient Medical History Hx Cardiac Disorders: Yes - Cardiac x 1, afib Hx Congestive Heart Failure: No Hx Hypertension: Yes Hx Diabetes: No Hx Gastroesophageal Reflux: Yes Hx MRSA: No - Vaccination History Hx Tetanus, Diphtheria Vaccination: Yes Hx Influenza Vaccination: Yes Hx Pneumococcal Vaccination: No - Social History Hx Tobacco Use: No Hx Alcohol Use: No Hx Substance Use: No Hx Substance Use Treatment: No Hx Depression: No - Female History Patient : No - Triage Comment ED Triage Comment: Patient states she has been having intermitten chest pain for several days and this afternoon the pain got worse approx 4:00pm today. Family Medical History - Family History Mother Name: mother Living Status: Cause of : lung cancer Hx Family Hypertension: Yes - parents Father Name: father Living Status: Cause of : can not remember Sister Family History: No Known Name: sisters x 3 Living Status: Still Living Physical Exam - Physical Exam General Appearance: Alert, No apparent distress Eyes, Ears, Nose, Throat Exam: PERRL/EOMI, normal ENT inspection Neck: non-tender, full range of motion, supple Respiratory: lungs clear, normal breath sounds Cardiovascular/Chest: regular rate, rhythm, no murmur Gastrointestinal/Abdominal: normal bowel sounds, non tender, soft, no organomegaly Extremity: normal range of motion, non-tender, normal inspection Neurologic: alert, normal mood/affect Skin Exam: normal color, warm/dry Lymphatic: no adenopathy Progress - Progress Progress: 02/14/18 19:16 W/U NEG, D/W YOGESH ANGULO, AGREES TO ADMIT REQUESTS 2ND TROP PRIOR TO ADMISSION. 02/14/18 19:16 PT CURRENTLY PAIN FREE, NO FURTHER SYMPTOMS, HEENT WNL. - EKG/XRAY/CT EKG: Sinus - RATE 77, NL AXIS, LAD, NL INTERVALS, , nonspecific ST T wave Chg, Changed from - 04/23/16 SVT NOTED PREVIOUSLY HAS RESOLVED, Unchanged from - 07/07 09/21 XRAY: chest - [facility]ER Departure - Departure Clinical Impression: Chest pain Qualifiers: Chest pain type: precordial pain Qualified Code(s): R07.2 - Precordial pain CAD (coronary artery disease) Qualifiers: Coronary Disease-Associated Artery/Lesion type: [place] artery [place] vs. transplanted heart: [place] heart Associated angina: angina presence unspecified Qualified Code(s): I25.10 - Atherosclerotic heart disease of [place] coronary artery without angina pectoris Hypertension Qualifiers: Hypertension type: essential hypertension Qualified Code(s): I10 - Essential (primary) hypertension Time of Disposition: 19:28 Disposition: Discharge to Home or Self Care Condition: Good Departure Forms: ED Discharge - Pt. Copy, Patient Portal Self Enrollment Instructions: DI for Chest Pain Referrals: KYLE RODRIGEZ MD [Primary Care Provider] - 1-2 Weeks Home Medications: Ambulatory Orders Folic Acid [(None)] 3 mg PO DAILY 01/22/13 Tofacitinib Citrate [Xeljanz Xr] 5 mg PO BID 02/23/16 Hydrochlorothiazide 12.5 mg PO DAILY 04/23/16 Losartan Potassium 100 mg PO DAILY 04/23/16 ALPRAZolam [Xanax] 0.5 mg PO PRN PRN 11/13/17 Alendronate Sodium [Fosamax] 70 mg PO ONCE 11/13/17 Aspirin [Aspirin Adult Low Dose] 81 mg PO DAILY 11/13/17 Clonidine HCl (Adhd) [Clonidine Hydrocloride] 0.1 mg PO PRN PRN 11/13/17 Coenzyme Q10 (Ubidecarenone) [Coq10 Gummies Adult] 100 mg PO DAILY 11/13/17 Methotrexate [Xatmep] 2.5 mg PO ONCE 11/13/17 Multiple Vitamins W/ Minerals [Multi For Her] 1 tab PO DAILY 11/13/17 Pravastatin Sodium 40 mg PO DAILY 11/13/17 Probiotic Product [Probiotic] 1 tab PO DAILY 11/13/17 Propranolol HCl 20 mg PO BID 11/13/17 Tramadol HCl [Ultram] 50 mg PO PRN PRN 11/13/17 Decision To Admit - Decistion To Admit Decision to Admit Reason: Admit from ER Decision to Admit Date: 02/14/18 Decision to Admit Time: 19:16
--- NOTE | 2018-02-14 17:21 | RAD ---
EXAM DESCRIPTION: Chest,1 View CLINICAL HISTORY: 72 years Female CP COMPARISON: 11/07/2016 FINDINGS: The cardiomediastinal silhouette appears unremarkable. No consolidating infiltrates or pleural effusions. No pneumothorax. Degenerative changes around the proximal left humerus. Multiple old healed rib fractures posteriorly on the right. IMPRESSION: No acute abnormality is identified. Electronically signed by: Katelin Ni MD 02/14/2018 5:20 PM [employer]
[2018-02-14] MEDS ORDERED: NITROGLYCERIN 0.4 MG 25 EA TAB SL PRN (21:39)
[2018-02-14] MEDS ORDERED: MORPHINE SULFATE INJ 10 MG/ML VIAL IV PRN (21:39)
[2018-02-14] MEDS ORDERED: SODIUM CHLORIDE 0.9% (FLUSH) 10 ML SYG IV PRN (21:39)
[2018-02-14] MEDS ORDERED: ACETAMINOPHEN 325 MG TAB PO PRN (21:39)
[2018-02-14] MEDS ORDERED: ALPRAZolam 0.5 MG TAB PO PRN (21:45)
[2018-02-14] MEDS ORDERED: traMADol HCL 50 MG TAB PO PRN ×3 (21:45→22:56)
[2018-02-14] MEDS ORDERED: IV SET AND CAP CHANGE INJ INJ SCH (22:00)
[2018-02-14] MEDS ORDERED: PROPRANOLOL HCL 20 MG PO SCH (22:00)
[2018-02-14] MEDS ORDERED: PROPRANOLOL HCL 20 MG TAB ONE (22:22)
[2018-02-14] MEDS ORDERED: traMADol HCL 50 MG TAB ONE (22:34)
[2018-02-15 06:28] VITALS: O2SAT 96
[2018-02-15] MEDS ORDERED: PANTOPRAZOLE SODIUM TAB 40 MG PO SCH (06:30)
[2018-02-15] MEDS ORDERED: MAGNESIUM SULFATE PREMIX 2GM 2 GM in PREMIX BAG 1 BAG IVPB ONE (08:56)
[2018-02-15] MEDS ORDERED: CLOPIDOGREL 75 MG TAB PO SCH (09:00)
[2018-02-15] MEDS ORDERED: hydroCHLOROthiazide 12.5 MG CAP PO SCH (09:00)
[2018-02-15] MEDS ORDERED: TOFACITINIB CITRATE 5 MG PO SCH (09:00)
[2018-02-15] MEDS ORDERED: AMIODARONE HCL 200 MG TAB PO SCH (09:00)
[2018-02-15] MEDS ORDERED: SODIUM CHLORIDE 0.9% (FLUSH) 10 ML SYG IV SCH (09:00)
[2018-02-15] MEDS ORDERED: ASPIRIN TABLET 325 MG TAB PO SCH (09:00)
[2018-02-15] MEDS ORDERED: LOSARTAN POTASSIUM 100 MG TAB PO SCH (09:00)
[2018-02-15] MEDS ORDERED: CIPROFLOXACIN 500 MG TAB PO SCH (09:00)
[2018-02-15] MEDS ORDERED: PROPRANOLOL HCL 20 MG TAB PO SCH (09:30)
[2018-02-15] MEDS ORDERED: MAGNESIUM SULFATE PREMIX 2GM 50 ML IVPB ONE (09:51)
[2018-02-15 10:22] VITALS: BP 126/79; TEMP 98.8
--- NOTE | 2018-02-15 11:34 | SSS ---
SUPERVISING PHYSICIAN: Mayank White MD CHIEF COMPLAINT: Chest pain and dizziness. DISCHARGE DIAGNOSIS: 1. Chest pain, rule out myocardial infarction. 2. Dizziness and vertigo. 3. History of irritable bowel syndrome on no chronic medications for this. 4. Anxiety. 5. 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 6. Rheumatoid arthritis on DMT. 7. Hypertension, controlled. 8. Hyperlipidemia on statin drugs chronically. HISTORY OF PRESENT ILLNESS: This is a 72-year-old female patient that presented to the Emergency Room with dizziness that started fairly regularly in the last two weeks, but has been going on for approximately two months. She has no dizziness when she is sitting, but she does have it when she is standing up. Sometimes when she stands up she gets dizzy, but sometimes she is just standing and she gets this dizziness. If she sits down, it goes away. It has worsened over the last few weeks. Two days prior to her admission, she actually had some substernal chest pain that went along with the dizziness. It did not radiate. It was just in the epigastric/substernal area. It was pressure and subsided when she would sit down. The chest pain was constant during the dizziness episodes, but other than that, it would go away. She had no nausea or vomiting, no radiation, no diaphoresis. She did not have any syncopal events. She presented to the Emergency Room and in the Emergency Room, she was given tramadol and some morphine. Lab was drawn and her CBC was basically within normal limits. Her electrolytes were within normal limits except her creatinine was a little bit elevated on admission at 1.31. Her liver enzymes were within normal limits and her initial two troponins were also less than 0.02. She has a history of atrial fibrillation with an ablation as well as several stents. Due to the chest pain, she was admitted to the hospital for observation. PAST MEDICAL HISTORY: PAST SURGICAL HISTORY: 1. Bilateral cataract removal. 2. Bilateral tubal ligation. 3. Carpal tunnel release. 4. Hysterectomy. 5. Cardiac stent times 2. 6. Cardiac ablation. OUTPATIENT MEDICATIONS: 1. Fosamax. 2. Aspirin 81 mg. 3. Coenzyme Q10. 4. Folic acid. 5. Multivitamin. 6. Probiotic. 7. Xanax. 8. Amiodarone, it is prescribed 50 mg daily, but she only takes 25 mg every other day. 9. Cipro for urinary tract infection previously prescribed. 10. Clopidogrel. 11. Losartan/HCTZ. 12. Methotrexate. 13. Pravastatin. 14. Propranolol. 15. Tofacitinib citrate. 16. Tramadol. ALLERGIES: NO KNOWN DRUG ALLERGIES. FAMILY HISTORY: Positive for cancer. SOCIAL HISTORY: She is . She has never smoked tobacco. She drinks alcohol on a social basis. REVIEW OF SYSTEMS: GENERAL: Denies fever, fatigue or weight changes. HEENT: Negative for sinus symptoms, ear pain, vision changes or sore throat. RESPIRATORY: Negative for wheezing, coughing or shortness of breath. CARDIAC: Positive for chest pain although she is not having any chest pains current. Negative for palpitations or tachycardia. GASTROINTESTINAL: Negative for nausea, vomiting, diarrhea or abdominal pain. GENITOURINARY: Negative for hematuria, dysuria or polyuria. She is presently on Cipro for a urinary tract infection which was prescribed last week. MUSCULOSKELETAL: Negative for arthralgias, myalgias. NEUROLOGIC: Positive for vertigo and dizziness. Negative for seizures. PHYSICAL EXAMINATION: VITAL SIGNS: Temperature 98.8. Heart rate 67. Blood pressure 126/79. Respiratory rate 16. O2 saturation 96% on room air. GENERAL: This is a 72-year-old female patient lying in her hospital bed. She looks younger than her stated age. HEENT: Normocephalic, atraumatic. Pupils are equal and reactive. Oropharynx is clear. NECK: Supple without mass. RESPIRATORY: Essentially clear to auscultation bilaterally. CARDIOVASCULAR: Regular rate and rhythm. GASTROINTESTINAL: Abdomen is soft, nondistended, nontender. Bowel sounds are positive. EXTREMITIES: No cyanosis, clubbing or edema. NEUROLOGIC: Awake, alert and oriented times three. LABORATORY: Followup lab shows her electrolytes are within normal limits. Her creatinine has now come down to 1.27. It looks like her baseline creatinine is about 1.5. Her serial cardiac enzymes were all negative. Her lipid panel shows triglycerides 173, LDL 91, HDL 56. Magnesium slightly low at 1.5. Chest x-ray showed no acute abnormality. All other labs and films have been reviewed via the EMR. DISCHARGE PLAN: The patient will be discharged home in stable condition. She has a followup appointment with her primary care physician, Dr. Calzada, on 02/21/18 at 10 AM. She will be discharged on her routine medicines and I have added a proton pump inhibitor for ulcer prophylaxis and possibly having gastroesophageal reflux disease. She also has irritable bowel syndrome per history and I have given her some Bentyl. She will also have meclizine for the vertigo. She does have an appointment with Dr. Noland in a month and I will leave that up to Dr. Calzada if he would like to have her appointment moved up. She has been adjusting her medications. She told Dr. Noland about three months ago that she would no longer take her Plavix, so she has not been taking that. She also is supposedly on 50 mg of amiodarone and she has been taking 25 mg every other day, so that probably needs to be clarified at her visit. Her echocardiogram from 2009 showed an ejection fraction of 63% with mild concentric left ventricular hypertrophy. I am sure that Dr. Noland has ordered an echocardiogram since this echocardiogram. She is to resume her previous activities and diet and return to the hospital or call Dr. Calzada's office for any problems or complications. #[id number]; #[id number] [facility]
[2018-02-15] MEDS ORDERED: PRAVASTATIN SODIUM 20 MG TAB PO SCH (21:00)
[2018-02-15] MEDS ORDERED: ENOXAPARIN SODIUM 40 MG/0.4 ML SYG SUBCU SCH (21:49)
[2018-02-21] MEDS ORDERED: METHOTREXATE 2.5 MG PO SCH (09:00)
== END 2018-02-15 11:29 | disposition home or self-care (01) ==
LOC: ER 16:21 → MS 20:44
PROVIDERS: ADMIT Nurse Practitioner Acute Care; ATTEND Nurse Practitioner Acute Care
DX: R07.2 Precordial pain (principal); R42 Dizziness and giddiness; I25.10 Atherosclerotic heart disease of native coronary artery without angina pectoris; I10 Essential (primary) hypertension; E78.5 Hyperlipidemia, unspecified; K58.9 Irritable bowel syndrome, unspecified; F41.9 Anxiety disorder, unspecified; I48.91 Unspecified atrial fibrillation; M06.9 Rheumatoid arthritis, unspecified; K21.9 Gastro-esophageal reflux disease without esophagitis; Z95.5 Presence of coronary angioplasty implant and graft; Z79.02 Long term (current) use of antithrombotics/antiplatelets; Z79.1 Long term (current) use of non-steroidal anti-inflammatories (NSAID); Z79.82 Long term (current) use of aspirin; Z79.899 Other long term (current) drug therapy; Z80.1 Family history of malignant neoplasm of trachea, bronchus and lung
CPT/HCPCS: 96365; J3475; 82553 ×2; 80053 ×2; 80061; 36415 ×2; 85025 ×2; 82550 ×2; 83735; 84484 ×4; 71045; 94760 ×2; 99284; 93005 ×3; G0378

== ENCOUNTER → 2018-04-23 | Outpatient (CLI) | payer MEDICARE, OTHER | LOC: LAB.O 11:16 | PROVIDERS: ATTEND Internal Medicine Rheumatology | DX: Z79.899 Other long term (current) drug therapy (principal) ==

== ENCOUNTER 2018-07-25 05:22 | Inpatient (IN) | payer MEDICARE, OTHER ==
--- NOTE | 2018-07-17 09:00 | HP ---
CHIEF COMPLAINT: Left shoulder pain. HISTORY OF PRESENT ILLNESS: Keri is a 73-year-old female with a history of pain in the left shoulder. She has had this pain going on for years and it has been getting progressively worse. Unfortunately, she has failed to get relief with conservative measures. Because of her shoulder pain and severity of her rheumatoid arthritis, she has requested operative intervention. After discussing the risks, benefits and alternatives to operative intervention, she has given informed consent for shoulder arthroplasty. PAST SURGICAL HISTORY: 1. Carpal tunnel release. MEDICATIONS: 1. Tramadol. 2. Alendronate. 3. Methotrexate. 4. Losartan. 5. Propranolol. 6. Folate. 7. Pravastatin. 8. Amiodarone. ALLERGIES: NO KNOWN DRUG ALLERGIES CODE STATUS: Full code. IMMUNIZATIONS: Up to date. FAMILY HISTORY: None pertinent to today's complaint. SOCIAL HISTORY: The patient does not smoke or use any illicit drugs. She does drink on occasion. REVIEW OF SYSTEMS: Negative except as indicated in the History of Present Illness. PHYSICAL EXAMINATION: VITAL SIGNS: Blood pressure 151/107. Pulse 73. Height 5'1". Weight 136 pounds. MENTAL STATUS: The patient is awake, alert, and is able to give a good history and participate in the physical. The patient is oriented to person, place and time. SKIN: Normal tone and turgor. HEENT: Normocephalic, atraumatic. Pupils equal, round and reactive. Mucosal membranes are moist. NECK: Normal range of motion. No thyromegaly, no lymphadenopathy. CHEST: Normal respiratory excursion. CARDIAC: Regular rate and rhythm. No murmurs, rubs or gallops. MUSCULOSKELETAL: The bilateral lower extremities show some pain with range of motion of the knees, however, range of motion of the hips is within normal limits. She has full extension of the knees and flexion is to about 120 degrees on both sides. She has no varus/valgus or anterior/posterior laxity. She has no overall malalignment. Sensation is intact. Strength is 5/5. The right upper extremity shows no deformities. However, she does have pain with range of motion of the shoulder. She does have some crepitus. Sensation is intact. Redevelopment Specialist strength is 5/5. It is warm and well perfused. She has a negative belly press maneuver. The left upper extremity shows about 95 degrees of abduction and forward flexion. She has no ability to reach behind the plane of the body. She does have a negative belly press. Redevelopment Specialist strength is 5/5. There is some crepitus with range of motion of the shoulder. Sensation is intact. She does have some minor discomfort over the acromioclavicular joint, but severe pain with range of motion of the shoulder. IMAGING: X-rays show severe arthritis, as does MRI. ASSESSMENT: 1. Rheumatoid arthritis. PLAN: The plan at this point is for reverse shoulder arthroplasty. We have discussed the risks, benefits, and alternatives to that and the patient has given informed consent. #[id number] [facility]
[2018-07-25] MEDS ORDERED: LACTATED RINGERS 1,000 ML ONE (05:47)
[2018-07-25] MEDS ORDERED: SODIUM CHL 0.9% 100ML MINI-BAG 100 ML IVPB ONE (05:47)
[2018-07-25] MEDS ORDERED: TRANEXAMIC ACID 1,000 MG/10 ML VIAL ONE ×2 (05:48→05:49)
[2018-07-25] MEDS ORDERED: VANCOMYCIN HCL INJ 1,000 MG VIAL IVPB ONE ×3 (05:48→18:32)
[2018-07-25] MEDS ORDERED: SODIUM CHLORIDE 0.9% 100ML 100 ML IVPB ONE (05:48)
[2018-07-25] MEDS ORDERED: SODIUM CHLORIDE 0.9% 250ML 250 ML ONE ×3 (05:48→19:55)
[2018-07-25] MEDS ORDERED: ceFAZolin SODIUM 1 GM VIAL ONE (05:48)
[2018-07-25] MEDS ORDERED: CLINDAMYCIN IV 900MG 50 ML IVPB ONE (06:28)
[2018-07-25] MEDS ORDERED: ROCURONIUM BROMIDE 10 MG/ML VIAL ONE (06:31)
[2018-07-25] MEDS ORDERED: BUPIVACAINE 0.5% 30 ML VIAL INJ ONE (06:31)
[2018-07-25] MEDS ORDERED: fentaNYL CITRATE INJ 50 MCG/ML AMP ONE (06:31)
[2018-07-25] MEDS ORDERED: MIDAZOLAM INJ 2 MG/2 ML VIAL ONE ×2 (06:31→06:43)
[2018-07-25] MEDS ORDERED: BUPIVACAINE LIPOSOME 13.3 MG/ML VIAL INJ ONE ×2 (06:37→09:21)
[2018-07-25] MEDS ORDERED: traMADol HCL 50 MG TAB PO PRN (07:30)
[2018-07-25] MEDS ORDERED: HYDROcodone 5MG/APAP 325MG 1 EA TAB PO PRN (07:30)
[2018-07-25] MEDS ORDERED: ALUMINUM & MAGNESIUM HYDROXIDE 30 ML UD PO PRN (07:30)
[2018-07-25] MEDS ORDERED: MORPHINE PCA 1 MG/ML 100 ML BAG IVPB SCH (07:30)
[2018-07-25] MEDS ORDERED: DEX 5% W/NACL 0.45% 1000ML 1,000 ML IVS PRN (07:30)
[2018-07-25] MEDS ORDERED: NALOXONE HCL INJ 0.4 MG/ML VIAL IV PRN (07:30)
[2018-07-25] MEDS ORDERED: ACETAMINOPHEN 500 MG TAB PO PRN (07:30)
[2018-07-25] MEDS ORDERED: BISACODYL SUPPOSITORY 10 MG PR PRN (07:30)
[2018-07-25] MEDS ORDERED: IV SET AND CAP CHANGE INJ INJ SCH (07:30)
[2018-07-25] MEDS ORDERED: MAGNESIUM HYDROXIDE 30 ML UD PO PRN (07:30)
[2018-07-25] MEDS ORDERED: TRANEXAMIC ACID INJ 1,000 MG in SODIUM CHLORIDE 0.9% 100ML 100 ML IVPB ONE (07:30)
[2018-07-25] MEDS ORDERED: PROMETHAZINE HCL INJ 25 MG in SODIUM CHLORIDE 0.9% 50ML 50 ML IVPB PRN (07:30)
[2018-07-25] MEDS ORDERED: TEMAZEPAM 15 MG CAP PO PRN (07:30)
[2018-07-25] MEDS ORDERED: MORPHINE SULFATE INJ 10 MG/ML VIAL IM PRN (07:30)
[2018-07-25] MEDS ORDERED: MORPHINE SULFATE INJ 10 MG/ML VIAL IV PRN (07:30)
[2018-07-25] MEDS ORDERED: CYCLOBENZAPRINE HCL 10 MG TAB PO PRN (07:30)
[2018-07-25] MEDS ORDERED: PROMETHAZINE HCL INJ 12.5 MG in SODIUM CHLORIDE 0.9% 50ML 50 ML IVPB PRN (07:30)
[2018-07-25] MEDS ORDERED: ONDANSETRON INJ 4 MG/2 ML VIAL IV PRN (07:30)
[2018-07-25] MEDS ORDERED: BENZOCAINE-MENTH LOZ (CEPACOL) 1 EA LOZ MT PRN (07:30)
[2018-07-25] MEDS ORDERED: ACETAMINOPHEN 325 MG TAB PO PRN (07:30)
[2018-07-25] MEDS ORDERED: ZOLPIDEM TARTRATE 5 MG TAB PO PRN (07:30)
[2018-07-25] MEDS ORDERED: SUGAMMADEX SODIUM 200 MG/2 ML VIAL IV ONE (07:50)
[2018-07-25] MEDS ORDERED: KETAMINE HCL 100 MG/ML VIAL ONE (07:50)
[2018-07-25] MEDS ORDERED: CLINDAMYCIN IV 900 MG/50 ML BAG IVPB ONE (07:58)
[2018-07-25] MEDS ORDERED: ELECTROLYTE-A 1,000 ML IVS ONE (09:13)
[2018-07-25] MEDS ORDERED: DEXAMETHASONE INJ 10 MG/ML VIAL IV ONE (10:00)
[2018-07-25] MEDS ORDERED: PROPOFOL 200 MG/20 ML VIAL IV ONE (10:00)
[2018-07-25] MEDS ORDERED: LIDOCAINE 1% 10 ML VIAL INJ ONE (10:00)
[2018-07-25] MEDS ORDERED: ePHEDrine SULF 50 MG/ML IV ONE (10:00)
[2018-07-25] MEDS ORDERED: raNITIdine HCL INJ 25 MG/ML VIAL IV ONE (10:00)
[2018-07-25] MEDS ORDERED: MEPERIDINE HCL 50 MG/ML VIAL ONE (10:42)
[2018-07-25] MEDS ORDERED: MEPERIDINE HCL 50 MG/ML VIAL IV ONE (10:50)
[2018-07-25] MEDS ORDERED: MORPHINE PCA 1 MG/ML 100 ML BAG IVPB ONE (11:05)
[2018-07-25] MEDS: CLINDAMYCIN INJ (VIAL) 300 MG in SODIUM CHLORIDE 0.9% 50ML 50 ML IVPB SCH ×3 (14:37→23:02)
[2018-07-25] MEDS: CELECOXIB 100 MG CAP PO SCH ×2 (14:37→17:30)
[2018-07-25] MEDS: MAGNESIUM OXIDE 400 MG TAB PO SCH (14:38)
[2018-07-25] MEDS ORDERED: SODIUM CHLORIDE 0.9% 50ML 50 ML ONE ×4 (15:55→19:59)
[2018-07-25] MEDS ORDERED: ceFAZolin SODIUM 2 GRAMS PREMI 50 ML IVPB ONE ×2 (15:55→19:55)
[2018-07-25] MEDS ORDERED: CLINDAMYCIN PHOSPHATE 150 MG/ML VIAL ONE ×3 (15:55→19:58)
[2018-07-25] MEDS: ceFAZolin SODIUM 2 GRAMS PREMI 2 GM in PREMIX BAG 1 BAG IVPB SCH (16:06)
[2018-07-25] MEDS: VANCOMYCIN HCL INJ 1,000 MG in SODIUM CHLORIDE 0.9% 250ML 250 ML IVPB SCH (18:44)
--- NOTE | 2018-07-25 19:47 | CONS ---
DATE OF CONSULTATION: 07/25/18 SUPERVISING PHYSICIAN: Meek Calzada M.D. REASON FOR CONSULTATION: Assistance with medical management. HISTORY OF PRESENT ILLNESS: This is a 73 year-old female who today underwent elective left shoulder reverse total arthroplasty. She has a history of rheumatoid arthritis and has had left shoulder pain for years. Under conservative management she did not have significant improvement and therefore underwent the surgical intervention today. There were no reported intraoperative complications. She returned to the Medical/Surgical Unit in stable condition. PAST MEDICAL HISTORY: 1. Rheumatoid arthritis. 2. Atrial fibrillation. 3. Hyperlipidemia. 4. Hypertension. PAST SURGICAL HISTORY: 1. Bilateral cataract removal. 2. Bilateral tubal ligation. 3. Carpal tunnel release. CURRENT MEDICATIONS: 1. Alprazolam 0.5 mg p.o. b.i.d. p.r.n. for anxiety. 2. Aspirin 81 mg p.o. daily. 3. Co-Enzyme Q10 200 mg p.o. daily. 4. Prolia 60 mg per mL subcutaneous twice annually. 5. Folic acid 1 mg p.o. b.i.d. 6. Losartan/HCTZ 110/12.5 p.o. daily. 7. Methotrexate 2.5 mg p.o. weekly on Monday. 8. Metoprolol 25 mg p.o. b.i.d. 9. Multivitamin 1 tab p.o. daily. 10. Pravastatin 40 mg p.o. daily. 11. Probiotic 1 tab p.o. daily. 12. Xeljanz 5 mg p.o. b.i.d. 13. Tramadol 100 mg p.o. t.i.d. p.r.n. for mild to moderate pain. 14. Verapamil 180 mg p.o. daily. 15. Bentyl 20 mg p.o. q.i.d. p.r.n. 16. Meclizine 25 mg p.o. every 4 hours. 17. Protonix 40 mg p.o. daily. ALLERGIES: NO KNOWN DRUG ALLERGIES. FAMILY HISTORY: Father is and mother who in her 80s due to lung cancer. SOCIAL HISTORY: She is . Nonsmoker and nondrinker. No illicit drugs. REVIEW OF SYSTEMS: Includes the left shoulder pain postoperatively and preoperatively. No other complaints currently. PHYSICAL EXAMINATION: VITAL SIGNS: Blood pressure 118/62, heart rate 67, respiratory rate 16, temperature 98.0, oxygen saturation 96%. GENERAL: Ms. Begum is a 73 year-old female who is in no active distress currently. CHEST: Lungs are clear to auscultation bilaterally. HEART: Slightly irregular heart rate with a normal S1 and S2. ABDOMEN: Soft. Positive bowel sounds. There is no tenderness to palpation. GENITOURINARY: Exam is deferred. EXTREMITIES: Lower extremities with no significant edema. 2+ pulses. Capillary refill less than 2 seconds. The left shoulder is in a sling at this time and there is a dressing which is intact. NEUROLOGIC: The patient is alert and oriented. ASSESSMENT: 1. Left shoulder osteoarthritis status post left reverse total shoulder arthroplasty. 2. Rheumatoid arthritis. 3. Hypertension. 4. Hyperlipidemia. 5. Atrial fibrillation. PLAN: At this time she will be admitted to the hospital with postoperative orders, including physical therapy. We will continue her home medications except for the rheumatoid arthritis medications. She has been instructed to hold these by her retirement plan counselor. She is actually wanting to call her doctor's office for clarification on when she is supposed to restart these. She is pretty sure she is not supposed to start the Xeljanz and the Methotrexate again, but she is not completely sure. Will monitor in the Medical/Surgical unit and assist with medical intervention as needed. [facility][id number] [facility]
[2018-07-25] MEDS ORDERED: ENOXAPARIN SODIUM 30 MG/0.3 ML SYG SUBCU ONE (19:55)
[2018-07-25] MEDS: DOCUSATE CALCIUM 240 MG CAP PO SCH (20:49)
[2018-07-25] MEDS: SODIUM CHLORIDE 0.9% (FLUSH) 10 ML SYG IV PRN (20:49)
[2018-07-25] MEDS: ENOXAPARIN SODIUM 30 MG/0.3 ML SYG SUBCU SCH (22:51)
[2018-07-26] MEDS: ceFAZolin SODIUM 2 GRAMS PREMI 2 GM in PREMIX BAG 1 BAG IVPB SCH ×2 (00:14→08:45)
[2018-07-26] MEDS ORDERED: VANCOMYCIN HCL INJ 1,000 MG VIAL IVPB ONE (06:00)
[2018-07-26] MEDS: VANCOMYCIN HCL INJ 1,000 MG in SODIUM CHLORIDE 0.9% 250ML 250 ML IVPB SCH (06:12)
--- NOTE | 2018-07-26 08:04 | PN ---
DATE: 07/26/18 SUBJECTIVE: Ms. Begum is doing well and her pain is well controlled. She has had some urinary incontinence which she has had in the past as well. OBJECTIVE: Afebrile. Vital signs stable. Dressing is clean, dry and intact. She does have intact sensation over the lateral aspect of the shoulder. ASSESSMENT: Status post reverse shoulder arthroplasty. PLAN: The plan at this point is to get her moving with some passive range of motion today. We will monitor her urinary situation for improvement. Additionally, I have spoken with her about the bone quality at the time of surgery. She appeared to be very osteoporotic and although I was able to fix the glenosphere with 4 screws, I did talk to her about my concern about the osteoporotic nature of that bone and the screws stabilizing until we get bony ingrowth to the baseplate. She says she is currently transitioning from Fosamax to Prolia because her vice president digital strategist said she was continuing to have severe osteoporosis without any improvement on Fosamax. #[id number] [facility]
[2018-07-26] MEDS ORDERED: ceFAZolin SODIUM 2 GRAMS PREMI 50 ML IVPB ONE (08:10)
[2018-07-26] MEDS ORDERED: SODIUM CHLORIDE 0.9% 50ML 50 ML ONE ×3 (08:10→20:01)
[2018-07-26] MEDS ORDERED: CLINDAMYCIN PHOSPHATE 150 MG/ML VIAL ONE ×3 (08:10→20:00)
[2018-07-26] MEDS: CLINDAMYCIN INJ (VIAL) 300 MG in SODIUM CHLORIDE 0.9% 50ML 50 ML IVPB SCH ×3 (08:15→23:03)
[2018-07-26] MEDS: CELECOXIB 100 MG CAP PO SCH ×2 (08:27→17:35)
[2018-07-26] MEDS ORDERED: traMADol HCL 50 MG TAB PO PRN (09:59)
[2018-07-26] MEDS ORDERED: NON-FORMULARY MEDICATION 1 EA MIS (Denosumab [Prolia] 60 MG) SC SCH (10:00)
--- NOTE | 2018-07-26 10:14 | RAD ---
EXAM DESCRIPTION: Shoulder,Left 1 View: CR/DR/XR. CLINICAL HISTORY: 73 years Female, POSTOP ARTHROPLASTY COMPARISON: Shoulder 01/01/2014. TECHNIQUE: 1 view left shoulder AP IMPRESSION: Total left shoulder reverse arthroplasty has been performed. Customary position and near-anatomic alignment. Bone abutting the hardware is unremarkable. Typical postsurgical soft tissue changes are noted. No abnormal radiodense material in the soft tissues. Electronically signed by: Danilo Randle MD 07/26/2018 10:12 AM CDT
[2018-07-26] MEDS: ENOXAPARIN SODIUM 30 MG/0.3 ML SYG SUBCU SCH ×2 (10:30→23:03)
[2018-07-26] MEDS: PANTOPRAZOLE SODIUM TAB 40 MG PO SCH (10:41)
[2018-07-26] MEDS: METOPROLOL TARTRATE 25 MG TAB PO SCH ×2 (10:41→20:54)
[2018-07-26] MEDS: VERAPAMIL ER TAB 180 MG TAB PO SCH (10:42)
[2018-07-26] MEDS: LOSARTAN POTASSIUM 100 MG TAB PO SCH (10:42)
[2018-07-26] MEDS: hydroCHLOROthiazide 12.5 MG CAP PO SCH (10:42)
[2018-07-26] MEDS: MAGNESIUM OXIDE 400 MG TAB PO SCH (10:42)
[2018-07-26] MEDS: FOLIC ACID 1 MG TAB PO SCH ×2 (10:42→20:54)
[2018-07-26] MEDS: ASPIRIN (ENTERIC COATED) 81 MG TAB PO SCH (10:49)
[2018-07-26] MEDS ORDERED: METOPROLOL TARTRATE INJ 5 MG/5 ML VIAL IV ONE (12:05)
[2018-07-26] MEDS: DICYCLOMINE HCL 20 MG TAB PO SCH ×3 (13:36→20:54)
[2018-07-26] MEDS: DOCUSATE CALCIUM 240 MG CAP PO SCH (20:54)
[2018-07-26] MEDS: SODIUM CHLORIDE 0.9% (FLUSH) 10 ML SYG IV SCH (20:54)
[2018-07-26] MEDS: TOFACITINIB CITRATE 5 MG PO SCH (20:55)
[2018-07-26] MEDS ORDERED: PRAVASTATIN SODIUM 20 MG TAB PO SCH (21:00)
--- NOTE | 2018-07-26 22:57 | PN ---
DATE: 07/26/18 SUPERVISING PHYSICIAN: Meek Calzada M.D. SUBJECTIVE: The patient seems to be doing well. She has had good pain control. Her home medications have been started back. She has had no other complaints. OBJECTIVE: VITAL SIGNS: She has been afebrile. Temperature 98.8, pulse 85, blood pressure 124/72, respirations 18, satting 96% on room air. GENERAL: The patient is resting comfortably. She appears to be in no acute distress. Pain has been well controlled. CHEST: Lungs remain clear to auscultation. HEART: Regular rate and rhythm. ABDOMEN: Soft, non-tender. Positive bowel sounds. EXTREMITIES: Left shoulder has a dressing in place that is clean and dry. Pulses distally are strong, capillary refill is brisk. No reported neurovascular changes. NEUROLOGIC: She is alert and oriented times three. LABORATORY: Postoperative H&H is 9.4 and 28.5. ASSESSMENT: 1. Left shoulder osteoarthritis status postoperative day 1 for left reverse total shoulder arthroplasty. 2. Rheumatoid arthritis with severe osteopenia on Fosamax transitioned to Prolia. 3. Hypertension. 4. Hyperlipidemia. 5. Atrial fibrillation showing controlled ventricular rate. PLAN: Will continue to follow the patient until discharge. She has been doing well. We are holding her rheumatoid medications as per her ad operations intern. Again, she will call her doctor's office on discharge to clarify when she is supposed to restart those medications. Hopefully will discharge tomorrow. Until then continue to monitor and treat as needed. #[id number] [facility]
[2018-07-27] MEDS: PANTOPRAZOLE SODIUM TAB 40 MG PO SCH (06:36)
[2018-07-27] MEDS ORDERED: CLINDAMYCIN PHOSPHATE 150 MG/ML VIAL ONE (07:33)
[2018-07-27] MEDS ORDERED: SODIUM CHLORIDE 0.9% 50ML 50 ML ONE (07:33)
[2018-07-27] MEDS: CLINDAMYCIN INJ (VIAL) 300 MG in SODIUM CHLORIDE 0.9% 50ML 50 ML IVPB SCH (07:37)
[2018-07-27] MEDS: CELECOXIB 100 MG CAP PO SCH (07:39)
[2018-07-27] MEDS ORDERED: MULTIPLE VITAMINS W/ MINERALS 1 EA TAB PO SCH (09:00)
[2018-07-27] MEDS ORDERED: BIFIDOBACTERIUM INFANTIS 4 MG CAP PO SCH (09:00)
[2018-07-27] MEDS: MAGNESIUM OXIDE 400 MG TAB PO SCH (09:40)
[2018-07-27] MEDS: VERAPAMIL ER TAB 180 MG TAB PO SCH (09:40)
[2018-07-27] MEDS: LOSARTAN POTASSIUM 100 MG TAB PO SCH (09:40)
[2018-07-27] MEDS: DICYCLOMINE HCL 20 MG TAB PO SCH (09:40)
[2018-07-27] MEDS: hydroCHLOROthiazide 12.5 MG CAP PO SCH (09:40)
[2018-07-27] MEDS: METOPROLOL TARTRATE 25 MG TAB PO SCH (09:40)
[2018-07-27] MEDS: ASPIRIN (ENTERIC COATED) 81 MG TAB PO SCH (09:40)
[2018-07-27] MEDS: FOLIC ACID 1 MG TAB PO SCH (09:40)
[2018-07-27] MEDS: SODIUM CHLORIDE 0.9% (FLUSH) 10 ML SYG IV PRN (09:44)
[2018-07-27] MEDS: TOFACITINIB CITRATE 5 MG PO SCH (09:46)
[2018-07-27] MEDS: SODIUM CHLORIDE 0.9% (FLUSH) 10 ML SYG IV SCH (09:50)
[2018-07-27 11:14] VITALS: BP 116/73; TEMP 98.1; O2SAT 98
--- NOTE | 2018-07-27 13:16 | PN ---
DATE: 07/27/18 SUBJECTIVE: Ms. Begum is doing well and her pain is well controlled today. OBJECTIVE: Her wound is clean. There are no signs or symptoms of infection. She did perform well with physical therapy today. ASSESSMENT: Status post shoulder replacement. PLAN: The plan at this point is to for her to be discharged with outpatient therapy. She will followup with us as scheduled. #[id number] [facility]
[2018-07-27] MEDS: ENOXAPARIN SODIUM 30 MG/0.3 ML SYG SUBCU SCH (13:35)
--- NOTE | 2018-07-29 13:19 | DS ---
SUPERVISING PHYSICIAN: Meek Calzdaa MD ADMISSION DIAGNOSES: 1. Left shoulder osteoarthritis status post left reverse total shoulder arthroplasty. 2. Rheumatoid arthritis. 3. Hypertension. 4. Hyperlipidemia. 5. Atrial fibrillation. DISCHARGE DIAGNOSES: 1. Left shoulder osteoarthritis status post left reverse total shoulder arthroplasty. 2. Rheumatoid arthritis. 3. Hypertension. 4. Hyperlipidemia. 5. Atrial fibrillation. REASON FOR HOSPITALIZATION: This is a 73 year-old female who today underwent elective left shoulder reverse total arthroplasty. She has a history of rheumatoid arthritis and has had left shoulder pain for years. Under conservative management she did not have significant improvement and therefore underwent the surgical intervention today. There were no reported intraoperative complications. She returned to the Medical/Surgical Unit in stable condition. LABORATORY STUDIES: Hemoglobin 9.4, hematocrit 28.5. Urinalysis showed just trace of leukoesterase, otherwise within normal limits. Toxicology screen was normal with all main substances tested negative. No radiographic studies for review. PROCEDURE: Left shoulder reverse total arthroplasty. See Dr. Madrid's notes for details. HOSPITAL COURSE: The patient was admitted for elective surgery on 07/25 for left reverse total shoulder arthroplasty. She had no intraoperative complications. She progressed well through her recovery phase and initial physical therapy evaluation. She had no complications. She was felt clinically enough to discharge to continue outpatient management. PLAN: Ms. Begum was discharged on 07/27/18 with instructions to followup with Dr. Madrid as directed and scheduled. Wound management was as per Dr. Madrid's instructions. She was to resume her home medications as instructed. She was instructed to call her nuclear powerplant mechanic in regard to her medications so she could resume those as directed. She was told to return to the hospital should any concerning symptoms or call Dr. Madrid's office. DISCHARGE DIET: Diet as tolerated. ACTIVITIES: As per physical therapy, no pulling or lifting with affected limb and she is to have physical therapy evaluation and start rehabilitation on the following Monday [facility]. DISCHARGE MEDICATIONS: 1. Flexeril 10 mg every 8 hours as needed, #15, no refills. 2. [place] 5/[address] Madrid. All other medications were continued as prior to hospitalization except for rheumatology medications for which she is to followup with her nuclear powerplant mechanic to resume those. CONDITION ON DISCHARGE: Stable and improved. DISPOSITION: The patient is discharged to the care of family members. #[id number] [facility]
[2018-08-02] MEDS ORDERED: METHOTREXATE 2.5 MG PO SCH (09:00)
--- NOTE | 2018-08-14 13:16 | OP ---
DATE OF PROCEDURE: 07/25/18 PREOPERATIVE DIAGNOSIS: 1. Osteoarthritis of the shoulder. POSTOPERATIVE DIAGNOSIS: 1. Osteoarthritis of the shoulder. PROCEDURE: 1. Left reverse shoulder arthroplasty. SURGEON: Alonzo Madrid MD. CAGE MANAGER: Danilo Johnson CST, SA-[place]. ANESTHESIA: General anesthesia. COMPLICATIONS: None. FINDINGS: 1. Severe osteoarthritis. 2. Osteoporotic bone. INDICATION: Ms. Begum has a long history of worsening shoulder pain. Ms. Begum and Stephanie have talked about treatment options and, unfortunately, she has failed conservative measures. Because of the failure of conservative measures, she requested operative intervention. After discussing the risks, benefits and alternatives to that, the patient gave informed for that. PROCEDURE: The patient was brought to the Operating Room and placed in the supine position. General anesthesia was induced. The patient was transitioned into the beach chair position. Following transitioning into the beach chair position, the shoulder and elbow were sterilely prepped and draped. Standard deltopectoral approach was used. The subscapularis muscle was identified and elevated off the humerus taking care to protect the axillary nerve. Following that, the humerus was externally rotated and dislocated. Retractors were placed to expose the entirety of the humeral head. An external guide was used to make the humeral neck cut. Following humeral neck cut, sequential broaching was used to a size 15 stem. The 15 broach was left in place and a protective plate was applied to the proximal portion of the humerus and the glenoid was exposed. The glenoid labrum was removed and a large osteophyte surrounding the glenoid. A guidewire was placed at the inferior 1/3 of the glenoid. A reamer was used to obtain bleeding bone. At that point, it was very obvious that there was osteoporotic bone and the baseplate was applied. A size 28-mm center screw was applied and the superior, posterior and inferior screws were applied. There was no purchase at all anteriorly, therefore, that screw was left out. A size 32 glenosphere was applied. The proximal humerus was then exposed and the trial cup was placed. Following that, the shoulder was reduced and taken through a range of motion. There was no impingement and there was appropriate tension of the prosthesis. The humerus was again dislocated and the trial humeral component was removed. The final component was then placed. The shoulder was reduced and taken through a range of motion. The wound was very thoroughly irrigated and deltopectoral interval was closed. Following that, the skin and subcutaneous tissues were reapproximated. Sterile dressings were placed. The patient was placed in a sling, awoken from anesthesia and taken to the Recovery Room. POSTOPERATIVE PLAN: She will begin gentle passive range of motion on postoperative day 1. #[id number] [facility]
== END 2018-07-27 12:00 | disposition home or self-care (01) | DRG 483 ==
LOC: AMB 05:22 → MS 11:30
PROVIDERS: ADMIT Orthopaedic Surgery; ATTEND Nurse Practitioner Family
PROC: 3E0T3BZ Introduction of Anesthetic Agent into Peripheral Nerves and Plexi, Percutaneous Approach (ICD-10-PCS; 2018-07-25)
PROC: 0RRK00Z Replacement of Left Shoulder Joint with Reverse Ball and Socket Synthetic Substitute, Open Approach (ICD-10-PCS; principal; 2018-07-25 07:00)
DX: M19.012 Primary osteoarthritis, left shoulder (principal); M06.9 Rheumatoid arthritis, unspecified; R32 Unspecified urinary incontinence; M81.0 Age-related osteoporosis without current pathological fracture; I48.91 Unspecified atrial fibrillation; E78.5 Hyperlipidemia, unspecified; I10 Essential (primary) hypertension; Z79.82 Long term (current) use of aspirin; Z79.891 Long term (current) use of opiate analgesic; Z79.899 Other long term (current) drug therapy; Z79.83 Long term (current) use of bisphosphonates

== ENCOUNTER → 2018-08-16 | Outpatient (CLI) | payer MEDICARE, OTHER ==
--- NOTE | 2018-08-17 15:15 | MAM ---
EXAM DESCRIPTION: 3D Screening BILATERAL : Digital Mammography. CLINICAL HISTORY: 73 years Female Screening . No complaints. No personal or family history of breast cancer. Childbirth. Postmenopausal. HRT 5 or more years ago. Lifetime risk of developing breast cancer (Tyrer-Cuzick model)(%): 4.5. COMPARISON: 2-D digital screening bilateral mammography 11/16/2015 TECHNIQUE: Bilateral CC and MLO projection full-field images, digital tomosynthesis mammographic technique. Bilateral digital 2-D full-field MLO images. CAD not available for tomosynthesis or 2-D images. FINDINGS: The breast parenchymal density pattern is: Almost entirely fatty. No skin thickening or nipple retraction. Bilateral accessory breast tissue in the axilla. Bilateral solitary microcalcifications. Nodular densities in the inferior lateral left breast are more distinct since the prior study. These are located at the 4:30 clock position 7 cm from the nipple, and the posterior nodule may have enlarged since the prior study. No new focal, stellate mass or density, focal asymmetry , and no suspicious microcalcifications right breast. IMPRESSION: BI-RADS CATEGORY: 0 - INCOMPLETE- Need additional imaging evaluation. FOLLOW-UP: Recall for additional imaging: Consider targeted left breast ultrasound for the region of interest lateral inferior left breast middle third. Optional diagnostic tomosynthesis images to follow if indicated by ultrasound study.. Written communication concerning the IMPRESSION and Follow-up, will be mailed to the patient and referring health care provider. Electronically signed by: Danilo Randle MD 08/17/2018 3:13 PM CDT
== END ==
LOC: GMAE 10:41
PROVIDERS: ATTEND Family Medicine
DX: Z12.31 Encounter for screening mammogram for malignant neoplasm of breast (principal); I10 Essential (primary) hypertension; E78.2 Mixed hyperlipidemia

== ENCOUNTER → 2018-09-17 | Outpatient (CLI) | payer MEDICARE, OTHER ==
--- NOTE | 2018-09-18 08:28 | US ---
EXAM DESCRIPTION: Breast,Left: Ultrasound CLINICAL HISTORY: 73 yearsFemaleABN MAMMO focal mass densities lateral left breast. COMPARISON: Bilateral screening digital breast tomosynthesis 08/16/2018. TECHNIQUE: Transcutaneous scanning of the left breast utilizing rolon-scale and Doppler modes. Scanning performed by the data reduction technician and by Dr. Randle. FINDINGS: Ultrasound: Scanning of the lateral left breast mid third and anterior third. Mostly fatty echotexture. Minimal fibroglandular elements. At the 4:00 positions 7 cm from the nipple, is an anechoic oval-shaped cyst with thin circumscribed mackey wider than tall orientation and posterior acoustic enhancement. Dimensions are 4.5 x 4.2 mm. Adjacent to this cyst is a second cyst same clock position and distance from the nipple. Dimensions are 7.5 x 5.3 mm. Typical characteristics for a cyst. Both cysts are nonvascular. Scanning closer to the nipple, 2 mm cyst and small ducts. IMPRESSION: Benign exam. BIRAD CATEGORY: 2 BENIGN FINDINGS. RECOMMENDATIONS: FOLLOW UP: Return to routine digital bilateral mammographic screening, one year interval from August 2018. Written communication explaining the IMPRESSION and follow-up, will be mailed to the patient and referring health care provider. The FINDINGS and the FOLLOW-UP plan were reviewed in person with the patient after the examination. According to the [employer], yearly mammograms are recommended starting at age 40 and continuing as long as a woman is in good health. Any breast change noted on a breast self-exam should be reported promptly to the patient's healthcare provider. Breast MRI is recommended for women with an approximately 20-25% or greater lifetime risk of breast cancer, including women with a strong family history of breast or ovarian cancer and women who have been treated for Hodgkin's disease. A negative mammographic report should not delay tissue diagnosis in patients with significant clinical history or physical findings. Extremely dense breast tissue limits the sensitivity of digital mammography. Electronically signed by: Danilo Randle MD 09/18/2018 8:26 AM CDT
== END ==
LOC: US 13:00
PROVIDERS: ATTEND Family Medicine
DX: R92.2 Inconclusive mammogram (principal)

== ENCOUNTER → 2018-10-26 | Outpatient (CLI) | payer MEDICARE, OTHER ==
--- NOTE | 2018-10-27 20:14 | RAD ---
EXAM DESCRIPTION: Radiographs of the left Shoulder:XR/CR/DR CLINICAL HISTORY: LEFT SHOULDER PAIN COMPARISON: Postoperative image July 2018. TECHNIQUE: Three views. Internal and External rotation. Scapular "Y" image. FINDINGS: Left total shoulder reverse arthroplasty. Components are in customary position and near-anatomic alignment. Bone abutting the components is unremarkable. No abnormal radiodense objects in the joint spaces or soft tissues.. IMPRESSION: Left shoulder total reverse arthroplasty customary position and near-anatomic alignment. No hardware or bony complications. Electronically signed by: Danilo Randle MD 10/27/2018 8:12 PM CDT
== END ==
LOC: RAD 09:24
PROVIDERS: ATTEND Orthopaedic Surgery
DX: M25.512 Pain in left shoulder (principal); Z96.612 Presence of left artificial shoulder joint

== ENCOUNTER 2019-05-20 16:41 | Emergency (ER) | payer MEDICARE, OTHER ==
[2019-05-20] MEDS ORDERED: SODIUM CHLORIDE 0.9% (FLUSH) 10 ML SYG IV PRN (16:45)
--- NOTE | 2019-05-20 16:46 | ED.PDOC ---
History of Present Illness - General Time Seen by Provider: 05/20/19 16:44 Source: patient, EMS - History of Present Illness Initial Comments: 73 yo female with PMH of HTN who is bib EMS from home for cc of fall with head injury which occurred at home just [place]. Pt states she tripped on a cat climber in the home and fell forward striking her head against the metal frame of an ottoman. Denies any LOC. Reports constant throbbing 8/10 pain to left forehead at site of injury without radiation, worse with palpation, no meds given [place]. She reports a large laceration to the area and large bleeding. Denies any other acute injuries or sx's. Denies neck pain, weakness, numbness, blurred vision, chest pain, dyspnea, abd pain, n/v/d, pelvic/hip pain. Takes a baby ASA daily but no blood thinners. Unsure of date of last tetanus imm. Allergies/Adverse Reactions: Allergies NO KNOWN ALLERGY Allergy (Verified 07/16/18 13:26) Home Medications: Ambulatory Orders Folic Acid 1 mg PO BID 01/22/13 Tofacitinib Citrate [Xeljanz Xr] 5 mg PO BID 02/23/16 ALPRAZolam [Xanax] 0.5 mg PO BID PRN 11/13/17 Aspirin [Aspirin Adult Low Dose] 81 mg PO DAILY 11/13/17 Coenzyme Q10 (Ubidecarenone) [Coq10 Gummies Adult] 200 mg PO DAILY 11/13/17 Methotrexate [Xatmep] 2.5 mg PO WKLY 11/13/17 Multiple Vitamins W/ Minerals [Multi For Her] 1 tab PO DAILY 11/13/17 Pravastatin Sodium 40 mg PO DAILY 11/13/17 Probiotic Product [Probiotic] 1 tab PO DAILY 11/13/17 Tramadol HCl [Ultram] 100 mg PO TID PRN 11/13/17 Dicyclomine HCl [Bentyl] 20 mg PO QID #120 tab 02/15/18 Meclizine HCl [Meclizine Hydrochloride] 25 mg PO Q4H PRN #60 tab 02/15/18 Pantoprazole Tablet [Protonix] 40 mg PO DAILY #30 tab 02/15/18 Denosumab [Prolia] 60 mg SC ONCE 07/16/18 Metoprolol Tartrate [Lopressor] 25 mg PO BID 07/16/18 Verapamil HCl [Verapamil HCl Sr] 180 mg PO DAILY 07/16/18 Losartan Potassium & Hydrochlo [Hyzaar 100-12.5 mg] 1 tab PO DAILY 07/25/18 Cyclobenzaprine HCl [Flexeril] 10 mg PO Q8H PRN #15 tab 07/27/18 HYDROcodone 5MG/APAP 325MG [[place] 5/325] 1 ea PO Q4H PRN tab 07/27/18 Cephalexin Monohydrate [Keflex] 500 mg PO BID 5 Days #10 cap 05/20/19 Review of Systems - Review of Systems Review of Systems: 05/20/19 17:22 as per HPI All other Systems: Reviewed and Negative Past Medical History (General) - Patient Medical History Hx Seizures: No Hx Stroke: No Hx Asthma: No Hx of COPD: No Hx Cardiac Disorders: Yes - Cardiac x 1, afib Hx Congestive Heart Failure: No Hx Pacemaker: No Hx Hypertension: Yes Hx Diabetes: No Hx Gastroesophageal Reflux: Yes Hx MRSA: No - Vaccination History Hx Tetanus, Diphtheria Vaccination: Yes Hx Influenza Vaccination: Yes Hx Pneumococcal Vaccination: No - Social History Hx Tobacco Use: No Hx Alcohol Use: No Hx Substance Use: No Hx Substance Use Treatment: No Hx Depression: No Hx Physical Abuse: No Hx Emotional Abuse: No - Female History Patient : No Physical Exam - Physical Exam General Appearance: Alert, Anxious, No apparent distress Head Injury: active bleeding - approx 5 cm V-shaped deep scalp laceration to right forehead with active bleeding and soaked-through gauzes over the wound, appears clean Eye Exam: bilateral normal ENT Exam: hearing grossly normal, no evidence of ENT injury, no dental injury Peripheral Pulses: radial,right: 2+, radial,left: 2+ Cardiovascular/Respiratory: regular rate, rhythm, no M/R/G, normal peripheral pulses, no JVD, normal breath sounds, no respiratory distress Gastrointestinal/Abdominal: non tender, soft, no organomegaly Back Exam: normal inspection, no CVA tenderness, no vertebral tenderness Extremity Exam: no evidence of injury, normal range of motion, non-tender, no pedal edema Neurologic: lens silverer II-XII nml as tested, no motor/sensory deficits, alert, normal mood/affect, oriented x 3 Skin Exam: normal color, warm/dry Progress - Progress Progress: 05/20/19 17:23 Ground level fall with head injury -large lac wound to left forehead -etiology appears mechanical in nature -consider other injuries: skull frx, ICH, c-spine frx, rib frx's, etc... -obtain XR Chest CT head & c-spine -Left forehead lac repaired immediately on arrival to achieve hemostasis -Fentanyl 50 mcg IV given with good pain control 05/20/19 18:49 -CT head shows no acute processes. CT c-spine shows no acute processes - chron ic degenerative changes and neural foraminal stenosis noted. CXR reveals no acute processes per my read - cardiomegaly noted. L wrist XR shows no acute processes per my read. -Labs unremarkable for acute changes - anemia and CKD noted and appear at baseline. -Pt remains stable, wound re-inspected and no further bleeding. Vitals stable, pain well-controlled. -discussed all findings with pt. Discussed head injury precautions and return warnings at length. Discussed wound care - sutures out in 7-10 days. As I had to rapidly clean and repair the wound given her bleeding, will place on Keflex 500 BID x5 days to help prevent infection. -dc home in good condition Bora Porras MD Billing #[id number] 05/20/19 16:45 IV Care:Saline Lock per Protoc QSHIFT Telemetry .ONCE Sodium Chloride 0.9% (Flush) [Saline Flush Syringe] 10 ml IV PRN PRN EKG STAT UA [URINALYSIS] Stat 05/21/19 09:00 Pulse Ox Daily 05/21/19 16:45 EKG STAT Laboratory Results - last 24 hr 05/20/19 05/20/19 05/20/19 16:50 16:50 16:50 WBC 5.3 RBC 3.08 L Hgb 10.5 L Hct 31.0 L MCV 100.5 H MCH 34.1 H MCHC 34.0 RDW 16.1 H Plt Count 295 MPV 6.8 L Absolute Neuts (auto) 3.20 Absolute Lymphs (auto) 1.20 Absolute Monos (auto) 0.90 H Absolute Eos (auto) 0.00 Absolute Basos (auto) 0.00 Neutrophils % 59.5 Lymphocytes % 21.9 Monocytes % 17.1 H Eosinophils % 0.9 L Basophils % 0.6 PT 9.8 INR < 1.00 PTT (SP) 23.1 Sodium 135 Potassium 3.9 Chloride 101 Carbon Dioxide 24 Anion Gap 13.9 BUN 43 H Creatinine 1.54 H BUN/Creatinine Ratio 27.9 H Random Glucose 89 Serum Osmolality 280.4 Calcium 9.3 Troponin I B-Natriuretic Peptide 544.0 H* 05/20/19 16:50 WBC RBC Hgb Hct MCV MCH MCHC RDW Plt Count MPV Absolute Neuts (auto) Absolute Lymphs (auto) Absolute Monos (auto) Absolute Eos (auto) Absolute Basos (auto) Neutrophils % Lymphocytes % Monocytes % Eosinophils % Basophils % PT INR PTT (SP) Sodium Potassium Chloride Carbon Dioxide Anion Gap BUN Creatinine BUN/Creatinine Ratio Random Glucose Serum Osmolality Calcium Troponin I < 0.02 B-Natriuretic Peptide - EKG/XRAY/CT EKG: Sinus - NSR, HR 60, no ST elevs or q waves, axis & intervals normal, unchanged from 02/15/18 EKG Procedures - Laceration/Wound Repair Left Head Wound Length (cm): 5 Wound's Depth, Shape: into muscle, flap Wound Explored: no foreign body removed Betadine Prep?: Yes Anesthesia: Lidocaine w/ Epi Volume Anesthetic (cc's): 5 Wound Repaired With: sutures Suture Size/Type: 3:0, prolene Number of Sutures: 6 Layer Closure?: No Departure - Departure Clinical Impression: Fall from ground level Scalp laceration Qualifiers: Encounter type: initial encounter Qualified Code(s): S01.01XA - Laceration without foreign body of scalp, initial encounter Time of Disposition: 18:48 Disposition: Discharge to Home or Self Care Condition: Fair Instructions: Laceration Repair With Stitches (DC), Head Injury Observation (DC) Diet: resume usual diet Activity: increase activity as tolerated Referrals: KYLE RODRIGEZ MD [Primary Care Provider] - 1-2 Weeks Prescriptions: Cephalexin Monohydrate [Keflex] 500 mg PO BID 5 Days #10 cap Home Medications: Ambulatory Orders Folic Acid 1 mg PO BID 01/22/13 Tofacitinib Citrate [Xeljanz Xr] 5 mg PO BID 02/23/16 ALPRAZolam [Xanax] 0.5 mg PO BID PRN 11/13/17 Aspirin [Aspirin Adult Low Dose] 81 mg PO DAILY 11/13/17 Coenzyme Q10 (Ubidecarenone) [Coq10 Gummies Adult] 200 mg PO DAILY 11/13/17 Methotrexate [Xatmep] 2.5 mg PO WKLY 11/13/17 Multiple Vitamins W/ Minerals [Multi For Her] 1 tab PO DAILY 11/13/17 Pravastatin Sodium 40 mg PO DAILY 11/13/17 Probiotic Product [Probiotic] 1 tab PO DAILY 11/13/17 Tramadol HCl [Ultram] 100 mg PO TID PRN 11/13/17 Dicyclomine HCl [Bentyl] 20 mg PO QID #120 tab 02/15/18 Meclizine HCl [Meclizine Hydrochloride] 25 mg PO Q4H PRN #60 tab 02/15/18 Pantoprazole Tablet [Protonix] 40 mg PO DAILY #30 tab 02/15/18 Denosumab [Prolia] 60 mg SC ONCE 07/16/18 Metoprolol Tartrate [Lopressor] 25 mg PO BID 07/16/18 Verapamil HCl [Verapamil HCl Sr] 180 mg PO DAILY 07/16/18 Losartan Potassium & Hydrochlo [Hyzaar 100-12.5 mg] 1 tab PO DAILY 07/25/18 Cyclobenzaprine HCl [Flexeril] 10 mg PO Q8H PRN #15 tab 07/27/18 HYDROcodone 5MG/APAP 325MG [[place] 5/325] 1 ea PO Q4H PRN tab 07/27/18 Cephalexin Monohydrate [Keflex] 500 mg PO BID 5 Days #10 cap 05/20/19 Additional Instructions: Remain well-hydrated and gradually advance activity level as tolerated. Return to the ED immediately if you develop rapidly worsening or severe headache, confusion, vision changes, weakness, numbness, wound redness/warmth/swelling/pus-like drainage, or other concerning symptoms. Keep the wound clean and dry for next 24 hours. After that wash gently 2-3 times daily with warm soap and water and reapply topical antibiotic ointment and a clean dressing. Sutures out in 7-10 days (05/26-). You may return to the ED vest front presser for removal. Follow up with your primary care doctor in 1-2 weeks.
[2019-05-20] MEDS ORDERED: LIDOCAINE 1% W/ EPINEPHRINE 20 ML VIAL INJ ONE ×2 (16:50→17:16)
[2019-05-20] MEDS ORDERED: fentaNYL CITRATE INJ 50 MCG/ML AMP ONE (16:54)
[2019-05-20 17:06] VITALS: TEMP 97.7
[2019-05-20] MEDS ORDERED: fentaNYL CITRATE INJ 50 MCG/ML AMP IV ONE (17:09)
[2019-05-20] MEDS ORDERED: TETANUS,DIPHTHERIA,PERTUSSIS 1 EA SYG IM ONE (18:26)
--- NOTE | 2019-05-20 18:37 | RAD ---
EXAM DESCRIPTION: XR Chest, 1 View CLINICAL HISTORY: 73 years Female ground level fall TECHNIQUE: One view of the chest. COMPARISON: 02/14/2018 FINDINGS: Interval left shoulder arthroplasty. Healed right posterior rib fractures. No visualized acute fracture in the chest. Stable cardiomegaly with aortic atherosclerosis. No evidence of congestive failure. No visualized focal airspace consolidation, pleural effusion, or pneumothorax. IMPRESSION: Interval left shoulder arthroplasty. No visualized acute fracture. No acute cardiopulmonary abnormality. Electronically signed by: Maye Luciano MD 05/20/2019 6:35 PM CDT
--- NOTE | 2019-05-20 18:41 | CT ---
PROCEDURE: CT Cervical Spine CLINICAL HISTORY: 73 years Female Ground level fall. Left forehead injury TECHNIQUE: Contiguous axial CT images obtained through the cervical spine without IV contrast. Coronal and sagittal reformatted images also provided. This CT exam was performed according to our departmental dose-optimization program, which includes one or more of the following dose reduction techniques: automated exposure control, adjustment of the mA and/or kV according to patient size, and/or use of iterative reconstruction technique. COMPARISON: No prior exams provided for comparison. FINDINGS: There is no acute cervical spinal fracture. There is scattered moderate multilevel degenerative disc disease, uncovertebral arthrosis, and facet arthrosis. There is straightening of the normal cervical lordosis with grade 1 anterolisthesis of C3 on C4 and C4 on C5. There is slight retrolisthesis of C5 on C6. No aggressive osseous lesion. Vascular calcifications without prevertebral or paraspinal soft tissue swelling. The lung apices are clear. Chronic degenerative changes result in the following: At C2-C3, there is no central canal or neural foraminal stenosis. At C3-C4, there is slight flattening of the ventral aspect of the thecal sac with moderate bilateral neural foraminal stenosis, left greater than right. At C4-C5, there is flattening of the ventral aspect of the thecal sac with moderate to severe bilateral neural foraminal stenosis. At C5-C6, there is flattening of the ventral aspect of the thecal sac, right greater than left. Moderate bilateral neural foraminal stenosis, right greater than left. At C6-C7, there is mild bilateral neural foraminal stenosis, left greater than right. At C7-T1, there is no central canal or neural foraminal stenosis. IMPRESSION: No acute cervical spine injury. Chronic degenerative changes resulting in multilevel neural foraminal stenoses. Electronically signed by: Maye Luciano MD 05/20/2019 6:40 PM CDT
--- NOTE | 2019-05-20 18:45 | CT ---
PROCEDURE: CT Head CLINICAL HISTORY: 73 years Female ground level fall, Left forehead injury TECHNIQUE: Contiguous axial CT images obtained through the brain without IV contrast. This CT exam was performed according to our departmental dose-optimization program, which includes one or more of the following dose reduction techniques: automated exposure control, adjustment of the mA and/or kV according to patient size, and/or use of iterative reconstruction technique. COMPARISON: Correlation is made with the prior MRI dated 02/09/2017 FINDINGS: Left frontotemporal scalp laceration with soft tissue gas. No radiodense foreign body. No acute skull fracture. There is no acute parenchymal hemorrhage, extraaxial collection, or acute transcortical infarction. Scattered foci of low attenuation within the periventricular white matter are most compatible with chronic microvascular disease. There is mild diffuse volume loss without mass effect or midline shift. Vascular calcifications are noted. The paranasal sinuses and mastoid air cells are clear. IMPRESSION: Left frontotemporal scalp laceration. No skull fracture or acute intracranial abnormality. Scattered chronic microvascular changes. Electronically signed by: Maye Luciano MD 05/20/2019 6:43 PM CDT
--- NOTE | 2019-05-20 18:47 | RAD ---
EXAM DESCRIPTION: XR Wrist, Left 3 Views CLINICAL HISTORY: 73 years Female GLF, acute L wrist pain TECHNIQUE: Three views of the left wrist are provided. COMPARISON: No prior exams provided for comparison. FINDINGS: There is no acute left wrist fracture or dislocation. Carpal alignment is maintained. There is severe osteoarthritis at the basal joint of the left thumb. There is mild joint space narrowing involving the first three metacarpophalangeal joints and all visualized interphalangeal joints. Productive degenerative changes noted at the visualized second and third interphalangeal joints. IMPRESSION: No acute left wrist fracture or dislocation. Osteoarthritis is most pronounced at the basal joint of the left thumb. Electronically signed by: Maye Luciano MD 05/20/2019 6:45 PM CDT
[2019-05-20 19:13] VITALS: BP 135/79; O2SAT 98
== END 2019-05-20 19:10 | disposition home or self-care (01) ==
LOC: ER 16:41
DX: S01.01XA Laceration without foreign body of scalp, initial encounter (principal); M47.812 Spondylosis without myelopathy or radiculopathy, cervical region; S09.90XA Unspecified injury of head, initial encounter; I48.91 Unspecified atrial fibrillation; I10 Essential (primary) hypertension; Z79.82 Long term (current) use of aspirin; W01.0XXA Fall on same level from slipping, tripping and stumbling without subsequent striking against object, initial encounter; Y92.009 Unspecified place in unspecified non-institutional (private) residence as the place of occurrence of the external cause
CPT/HCPCS: 70450; 71045; 72125; 73110; 80048; 83880; 84484; 85025; 85610; 85730; 90471; 90715; 93005; J3010

== ENCOUNTER → 2019-10-17 | Outpatient (CLI) | payer MEDICARE, OTHER ==
--- NOTE | 2019-10-18 10:00 | MAM ---
EXAM DESCRIPTION: 3D Screening BILATERAL : Digital Mammography. CLINICAL HISTORY: 74 years Female ANNUAL SCREENING . No complaints. No family history of breast cancer. Menarche age 11. Childbirth age 24. Menopause age 67. Benign left breast biopsy. No HRT.. Lifetime risk of developing breast cancer (Tyrer-Cuzick model)(%): 5.4. COMPARISON: Bilateral screening digital breast tomosynthesis August 2018 with diagnostic right breast ultrasound September 2018.. TECHNIQUE: Bilateral CC and MLO projection full-field images, digital tomosynthesis mammographic technique. Bilateral digital 2-D full-field MLO images. CAD available for 2-D images. FINDINGS: The breast parenchymal density pattern is: Scattered areas of fibroglandular density. No skin thickening or nipple retraction. Bilateral skin and parenchymal solitary microcalcifications. Intramammary lymph nodes lower outer quadrant right breast stable. Axillary lymph nodes. No new focal, stellate mass or density, focal asymmetry , and no suspicious microcalcifications bilaterally. Stable mammograms compared to prior study. IMPRESSION: Benign exam. BIRAD CATEGORY: 2 BENIGN FINDINGS. RECOMMENDATIONS: FOLLOW UP: Routine digital bilateral mammographic screening, one year interval from October 2019. Written communication explaining the IMPRESSION and follow-up, will be mailed to the patient and referring health care provider. According to the [employer], yearly mammograms are recommended starting at age 40 and continuing as long as a woman is in good health. Any breast change noted on a breast self-exam should be reported promptly to the patient's healthcare provider. Breast MRI is recommended for women with an approximately 20-25% or greater lifetime risk of breast cancer, including women with a strong family history of breast or ovarian cancer and women who have been treated for Hodgkin's disease. A negative mammographic report should not delay tissue diagnosis in patients with significant clinical history or physical findings. Extremely dense breast tissue limits the sensitivity of digital mammography. Electronically signed by: Danilo Randle MD 10/18/2019 9:58 AM CDT
== END ==
LOC: MAMMO 10:04
PROVIDERS: ATTEND Family Medicine
DX: Z12.31 Encounter for screening mammogram for malignant neoplasm of breast (principal)

== ENCOUNTER → 2019-10-21 | Outpatient (CLI) | payer MEDICARE, OTHER | LOC: GMAE 14:26 | PROVIDERS: ATTEND Family Medicine | DX: I10 Essential (primary) hypertension (principal); R30.0 Dysuria; E78.2 Mixed hyperlipidemia; M06.9 Rheumatoid arthritis, unspecified ==

== ENCOUNTER → 2020-02-17 | Outpatient (CLI) | payer MEDICARE, OTHER | LOC: GMAE 17:20 | PROVIDERS: ATTEND Family Medicine | DX: N30.00 Acute cystitis without hematuria (principal) ==

== ENCOUNTER → 2020-02-27 | Outpatient (CLI) | payer MEDICARE, OTHER | LOC: GMAE 17:37 | PROVIDERS: ATTEND Family Medicine | DX: N30.00 Acute cystitis without hematuria (principal) ==

== ENCOUNTER → 2020-03-18 | Outpatient (CLI) | payer MEDICARE, OTHER | LOC: GMAE 12:41 | PROVIDERS: ATTEND Family Medicine | DX: D51.8 Other vitamin B12 deficiency anemias (principal); I10 Essential (primary) hypertension ==